=== PATIENT | female | born 1940 | race Caucasian/White ===

== ENCOUNTER 2017-03-14 14:40 | Emergency (ER) | payer MEDICARE ==
[2015-08-19 14:55] VITALS: BMI 22.6
[~2017-03-14 14:40] MED LIST: ACETAMINOPHEN325 MG PO; ACETAMINOPHEN500 M1 PO; ALDACTONE25 MG PO; ASPIRIN81 MG PO; BAYER CHEWABLE81 MG PO; CARDIZEM CD180 MG PO; CATAPRES TTS-20.2 MG TRANSDERM; CATAPRES0.1 MG PO; CRESTOR10 MG PO; GENTAMICIN 0.3 %5 ML EACH EYE; HEMOCYTE PLUS C1 CAP PO; HYDRALAZINE HC100 MG PO; HYDROCHLOROTHIA25 MG GT; LASIX20 MG PO; LEVAQUIN250 MG PO; LISINOPRIL10 MG PO; LOPRESSOR25 MG PO; NORVASC5 MG PO; PHOSLO667 MG PO; PLAVIX75 MG PO; PRINIVIL20 MG PO; TOPROL XL50 MG PO; ZESTRIL20 MG PO
== END 2017-03-14 18:10 | disposition home or self-care (01) ==
LOC: D.ER 14:40
DX: I10 Essential (primary) hypertension (principal); Z91.14 Patient's other noncompliance with medication regimen

== ENCOUNTER 2017-03-16 04:19 | Inpatient (IN) | payer MEDICARE ==
[~2017-03-16] VITALS: Ht 160 cm; Wt 62.7 kg
[2017-03-16 04:49] LABS: BASOPHILS 0.2 % (0-2); EOSINOPHILS 2.7 % (0-7); HEMATOCRIT 27.5 % (36.0-48.0); IMMATURE GRANULOCYTES 0.2 % (0-5); LYMPHOCYTES 17.4 % (15-50); MCH 30.6 pg (26.0-34.0); MCHC 32.7 g/dL (31.0-37.0); MCV 93.5 fL (80.0-100.0); MEAN PLATELET VOLUME 11.3 fL (7.4-10.4); MONOCYTES 4.3 % (2-11); NEUTROPHILS 75.2 % (40-80); PLATELET COUNT 260 10x3/uL (130-400); RBC 2.94 10x6/uL (4.00-5.40); RDW 12.5 % (11.5-14.5); WBC 12.4 10x3/uL (4.8-10.8)
[2017-03-16 05:03] LABS: ALBUMIN 2.9 g/dL (3.4-5.0); ANION GAP 17.9 mmol/L (8-16); BILIRUBIN - TOTAL 0.16 mg/dL (0.2-1.3); CALCIUM 7.9 mg/dL (8.5-10.1); CARBON DIOXIDE 20.2 mmol/L (21.0-32.0); CREATININE - SERUM 4.1 mg/dL (0.6-1.3); POTASSIUM - SERUM 4.1 mmol/L (3.5-5.1); PROTEIN - SERUM 6.8 g/dL (6.4-8.2)
[2017-03-16 05:10] LABS: TROPONIN-I 0.045 ng/mL (0.000-0.060)
[2017-03-16 10:21] VITALS: BP 166/56; BMI 22.5
[2017-03-16 11:47] VITALS: BP 173/67
[2017-03-16] MEDS ORDERED: FUROSEMIDE20 MG PO (13:21)
[2017-03-16] MEDS ORDERED: NIFEDIPINE ER60 MG PO (13:26)
[2017-03-16] MEDS ORDERED: ZOFRAN4 MG PO (13:34)
[2017-03-16 16:50] VITALS: BP 167/72
[2017-03-16 20:00] VITALS: BP 163/64
[2017-03-17] VITALS: BP 118/66
[2017-03-17 01:31] LABS: APPEARANCE CLEAR (CLEAR); BACTERIA NONE SEEN /hpf (NONE SEEN); BILIRUBIN NEGATIVE (NEGATIVE); COLOR YELLOW (YELLOW); EPITHELIAL CELLS RARE /hpf (0-5); GLUCOSE 50 mg/dL (NEGATIVE); KETONE NEGATIVE (NEGATIVE); NITRITE NEGATIVE (NEGATIVE); PROTEIN 1+ mg/dL (NEGATIVE); RED CELLS - URINE 0-5 /hpf (0-5); UROBILINOGEN NORMAL (NORMAL); WHITE CELLS - URINE RARE /hpf (0-5)
[2017-03-17 04:00] VITALS: BP 164/66
[2017-03-17 05:01] LABS: BASOPHILS 0.1 % (0-2); EOSINOPHILS 0.2 % (0-7); HEMATOCRIT 22.9 % (36.0-48.0); HEMOGLOBIN 7.6 g/dL (12-16); IMMATURE GRANULOCYTES 0.3 % (0-5); LYMPHOCYTES 9.8 % (15-50); MCH 30.5 pg (26.0-34.0); MCHC 33.2 g/dL (31.0-37.0); MEAN PLATELET VOLUME 11.4 fL (7.4-10.4); MONOCYTES 3.2 % (2-11); NEUTROPHILS 86.4 % (40-80); PLATELET COUNT 234 10x3/uL (130-400); RBC 2.49 10x6/uL (4.00-5.40); RDW 12.5 % (11.5-14.5); WBC 10.3 10x3/uL (4.8-10.8)
[2017-03-17 05:24] LABS: ANION GAP 16.8 mmol/L (8-16); CALCIUM 7.6 mg/dL (8.5-10.1); CREATININE - SERUM 3.9 mg/dL (0.6-1.3); PHOSPHOROUS 4.3 mg/dL (2.5-4.9); POTASSIUM - SERUM 3.8 mmol/L (3.5-5.1)
[2017-03-17 07:54] VITALS: BP 171/63
[2017-03-17 08:16] VITALS: Ht 160 cm; Wt 62.7 kg
[2017-03-17 12:46] VITALS: BP 146/65
[2017-03-17 16:11] VITALS: BP 139/49
[2017-03-17 20:58] VITALS: BP 153/60
[2017-03-18 00:02] VITALS: BP 159/58
[2017-03-18 05:12] LABS: BASOPHILS 0.1 % (0-2); EOSINOPHILS 0.2 % (0-7); HEMATOCRIT 21.5 % (36.0-48.0); IMMATURE GRANULOCYTES 0.3 % (0-5); LYMPHOCYTES 12.1 % (15-50); MCH 30.5 pg (26.0-34.0); MCV 92.3 fL (80.0-100.0); MEAN PLATELET VOLUME 12.2 fL (7.4-10.4); MONOCYTES 6.2 % (2-11); NEUTROPHILS 81.1 % (40-80); PLATELET COUNT 195 10x3/uL (130-400); RBC 2.33 10x6/uL (4.00-5.40); RDW 12.4 % (11.5-14.5)
[2017-03-18 05:24] LABS: HEMOGLOBIN 7.1 g/dL (12-16)
[2017-03-18 05:36] LABS: ANION GAP 13.3 mmol/L (8-16); CALCIUM 7.5 mg/dL (8.5-10.1); CARBON DIOXIDE 23.1 mmol/L (21.0-32.0); CREATININE - SERUM 3.9 mg/dL (0.6-1.3); PHOSPHOROUS 4.1 mg/dL (2.5-4.9); POTASSIUM - SERUM 3.4 mmol/L (3.5-5.1)
[2017-03-18 05:54] VITALS: BP 91/59
[2017-03-18 08:49] VITALS: BP 170/68
[2017-03-18 10:24] LABS: % SATURATION 9 % (15-55); IRON 17 ug/dl (35-150); TOTAL IRON BIND CAPACITY 185 ug/dl (260-445); UNSAT IRON BIND CAPACITY 168 ug/dl (150-375)
[2017-03-18 12:34] VITALS: BP 149/58
[2017-03-18 16:46] VITALS: BP 130/55
[2017-03-18 20:00] VITALS: BP 145/54
[2017-03-19 05:12] LABS: BASOPHILS 0.1 % (0-2); EOSINOPHILS 0.6 % (0-7); HEMATOCRIT 28.6 % (36.0-48.0); HEMOGLOBIN 9.7 g/dL (12-16); IMMATURE GRANULOCYTES 0.4 % (0-5); LYMPHOCYTES 7.8 % (15-50); MCH 30.5 pg (26.0-34.0); MCHC 33.9 g/dL (31.0-37.0); MCV 89.9 fL (80.0-100.0); MEAN PLATELET VOLUME 12.2 fL (7.4-10.4); MONOCYTES 4.5 % (2-11); NEUTROPHILS 86.6 % (40-80); PLATELET COUNT 191 10x3/uL (130-400); RBC 3.18 10x6/uL (4.00-5.40); RDW 13.4 % (11.5-14.5)
[2017-03-19 05:26] LABS: ANION GAP 15.1 mmol/L (8-16); CALCIUM 7.7 mg/dL (8.5-10.1); CARBON DIOXIDE 22.5 mmol/L (21.0-32.0); MAGNESIUM - SERUM 1.8 mg/dL (1.8-2.4); PHOSPHOROUS 3.9 mg/dL (2.5-4.9); POTASSIUM - SERUM 3.6 mmol/L (3.5-5.1)
[2017-03-19 05:52] VITALS: BP 172/71
[2017-03-19 08:08] VITALS: BP 175/61
[2017-03-19 08:45] LABS: COMPLEMENT C4 30.5 mg/dL (17.4-52.2)
[2017-03-19 09:38] LABS: ERYTHROCYTE SEDIMENTATION RATE 105 mm/hr (0-30)
[2017-03-19 12:36] VITALS: BP 156/65
[2017-03-19 17:00] VITALS: BP 149/60
[2017-03-19 21:09] VITALS: BP 154/44
[2017-03-20 01:13] VITALS: BP 154/66
[2017-03-20 05:33] LABS: BASOPHILS 0.1 % (0-2); EOSINOPHILS 3.4 % (0-7); HEMATOCRIT 29.5 % (36.0-48.0); HEMOGLOBIN 9.9 g/dL (12-16); IMMATURE GRANULOCYTES 0.2 % (0-5); LYMPHOCYTES 9.6 % (15-50); MCH 30.4 pg (26.0-34.0); MCHC 33.6 g/dL (31.0-37.0); MCV 90.5 fL (80.0-100.0); MEAN PLATELET VOLUME 12.3 fL (7.4-10.4); MONOCYTES 3.4 % (2-11); NEUTROPHILS 83.3 % (40-80); PLATELET COUNT 213 10x3/uL (130-400); RBC 3.26 10x6/uL (4.00-5.40); RDW 13.2 % (11.5-14.5)
[2017-03-20 05:50] LABS: WBC 8.2 10x3/uL (4.8-10.8)
[2017-03-20 05:55] LABS: ANION GAP 15.1 mmol/L (8-16); CALCIUM 7.8 mg/dL (8.5-10.1); CARBON DIOXIDE 23.4 mmol/L (21.0-32.0); PHOSPHOROUS 3.8 mg/dL (2.5-4.9); POTASSIUM - SERUM 3.5 mmol/L (3.5-5.1)
[2017-03-20 06:12] LABS: FOLATE (FOLIC ACID) - SERUM 7.2 ng/mL (>3.0)
[2017-03-20 08:00] VITALS: BP 153/58
[2017-03-20 09:11] LABS: ANA REFLEX - DIRECT Negative (Negative)
[2017-03-20 11:13] LABS: SPE - A/G RATIO 0.8 (0.7-1.7); SPE - ALBUMIN 2.2 g/dL (2.9-4.4); SPE - ALPHA-1 GLOBULIN 0.4 g/dL (0.0-0.4); SPE - ALPHA-2 GLOBULIN 0.9 g/dL (0.4-1.0); SPE - BETA GLOBULIN 0.9 g/dL (0.7-1.3); SPE - GAMMA GLOBULIN 0.6 g/dL (0.4-1.8); SPE - M-SPIKE Not Observed g/dL (Not Observed)
[2017-03-20 12:00] VITALS: BP 157/60
[2017-03-20 16:00] VITALS: BP 160/68
[2017-03-21 03:54] VITALS: BP 170/70
[2017-03-21 06:17] LABS: BASOPHILS 0.1 % (0-2); HEMATOCRIT 31.2 % (36.0-48.0); HEMOGLOBIN 10.3 g/dL (12-16); IMMATURE GRANULOCYTES 0.3 % (0-5); MCH 30.1 pg (26.0-34.0); MCV 91.2 fL (80.0-100.0); MONOCYTES 5.3 % (2-11); NEUTROPHILS 79.3 % (40-80); RBC 3.42 10x6/uL (4.00-5.40); WBC 7.4 10x3/uL (4.8-10.8)
[2017-03-21 06:18] LABS: PLATELET COUNT 264 10x3/uL (130-400)
[2017-03-21 06:45] LABS: ANION GAP 14.8 mmol/L (8-16); CALCIUM 7.7 mg/dL (8.5-10.1); CARBON DIOXIDE 23.9 mmol/L (21.0-32.0); CREATININE - SERUM 3.7 mg/dL (0.6-1.3); PHOSPHOROUS 3.8 mg/dL (2.5-4.9); POTASSIUM - SERUM 3.7 mmol/L (3.5-5.1)
[2017-03-21 08:15] LABS: ANTI-GLOMERULAR BASMENT MEMBRN 4 units (0-20)
[2017-03-21 08:30] VITALS: BP 190/72
[2017-03-21 12:06] VITALS: BP 174/78
[2017-03-21 14:15] LABS: ANCA - ANTIMYELOPEROXIDASE <9.0 U/mL (0.0-9.0); ANCA - ANTIPROTEINASE 3 <3.5 U/mL (0.0-3.5); ANCA - ATYPICAL <1:20 titer (Neg:<1:20); ANCA - CYTOPLASMIC <1:20 titer (Neg:<1:20); ANCA - PERINUCLEAR <1:20 titer (Neg:<1:20)
[2017-03-21 16:06] VITALS: BP 154/64
[2017-03-21 21:25] VITALS: BP 170/73
[2017-03-22 00:36] VITALS: BP 166/65
[2017-03-22 04:45] VITALS: BP 140/64
[2017-03-22 07:21] LABS: UPE RAND - ALBUMIN 58.8 % (()); UPE RAND - ALPHA 1 GLOBULIN 5.4 % (()); UPE RAND - ALPHA 2 GLOBULIN 11.7 % (()); UPE RAND - GAMMA GLOBULIN 12.1 % (())
[2017-03-22 08:05] VITALS: BP 189/78
[2017-03-22] MEDS ORDERED: PROCARDIA XL PO (10:58)
[2017-03-22] MEDS ORDERED: POTASSIUM CHLORIDE PO (10:59)
[2017-03-22 12:10] VITALS: BP 195/125
[2017-03-22] MEDS ORDERED: CATAPRES0.1 MG PO (13:07)
[2017-03-22 15:01] VITALS: BP 153/110
== END 2017-03-22 15:59 | disposition home or self-care (01) | DRG 682 ==
LOC: D.ER 04:19 → D.M2 06:00
PROVIDERS: Family Medicine; Internal Medicine Nephrology; Legal Medicine
DX: N17.9 Acute kidney failure, unspecified (principal); J18.9 Pneumonia, unspecified organism; I11.0 Hypertensive heart disease with heart failure; I50.9 Heart failure, unspecified; D50.9 Iron deficiency anemia, unspecified; I25.10 Atherosclerotic heart disease of native coronary artery without angina pectoris; E78.5 Hyperlipidemia, unspecified; E11.9 Type 2 diabetes mellitus without complications; I08.1 Rheumatic disorders of both mitral and tricuspid valves

== ENCOUNTER 2017-03-25 00:17 | Inpatient (IN) | payer MEDICARE ==
[~2017-03-25] VITALS: Ht 160 cm; Wt 55.1 kg
--- NOTE | ~2017-03-25 | EC ---
PATIENT:TODD RESENDIZ DATE OF SERVICE: 03/25/17 SEX: F MEDICAL RECORD: [id number] DATE OF : 44 LOCATION:[facility] AGE OF PATIENT: 76 ADMISSION DATE: 03/25/17 REFERRING PHYSICIAN: INTERPRETING PHYSICIAN: JUAN FRANCISCO GARZA MD ECHOCARDIOGRAM REPORT ECHO CHARGES 4 ECHO COMPLETE CLINICAL DIAGNOSIS: CARDIOMYOPATHY ECHOCARDIOGRAPHIC MEASUREMENTS (adult normal given) AC root (d.<3.7cm) 3.5 cm LV Septum d (<1.2 cm> 1.1 cm Valve Excursion 1.5 cm LV Septum (systole) 1.2 cm Left Atria (s.<4.0cm> 3.8 cm LVPW d(<1.2cm) 1.4 cm RV (d.<2.3cm) 4.4 cm LVPW (sytole) 1.5 cm LV diastole(<5.6CM) 6.3 cm MV E-F(>70mm/sec) cm LV systole 5.2 cm LVOT Diameter 1.5 cm MV exc.(>10mm) 1.3 cm Est.ejection fraction (50-75%) % Pericardial Effusion N DOPPLER: LVIT cm/sec A 117 cm/sec E 111 cm/sec LA cm/sec RVSP 31 mmHg LVOT 143 cm/sec AOP1/2T m/s Asc. Ao 190 cm/sec RVOT 109 cm/sec RA cm/sec PA 163 cm/sec AV Gradient Peak 14.39mmHg AV Mean 7.07 mmHg AV Area 1.3 cm MV Gradient Peak 6.99 mmHg MV Mean 2.34 mmHg MV Area cm COMMENTS: Car Pre Cooler: 2 ANDREINA HERRING Fermenter Wine: 4 Dr. Garza TAPE# PACS DATE OF SERVICE: 03/28/2017 PROCEDURE: Transthoracic echocardiogram. FINDINGS: 1. Left ventricle has mild left ventricular hypertrophy. There is mild anterior and septal hypokinesis and flow characteristics consistent with diastolic dysfunction. The overall ejection fraction of 45% to 50%. 2. The left atrium is normal size, normal function. 3. Aortic valve is not well visualized, but appears to be grossly normal with ECHOCARDIOGRAM REPORT [id number] TODD RESENDIZ possibly mild sclerosis. 4. Mitral valve has mild mitral regurgitation. 5. The right atrium upper limits of normal to mildly dilated. 6. The right ventricle is not well visualized, but appears to have normal function and appears to have moderate dilatation. 7. The right ventricular systolic pressures are normal. 8. The interatrial septum is grossly intact with no evidence of an ASD or PFO by color flow. There is no obvious thrombus, masses, exudate or effusion. CONCLUSIONS: The patient has evidence of hypertensive heart disease. There is evidence of regional wall motion abnormalities consistent with old infarction. The EF is mildly reduced. TRANSINT:[id number] Voice Confirmation ID: [id number] DOCUMENT ID: [id number] 04/08/2017 Edited to correct date of service, dmm. JUAN FRANCISCO GARZA MD at 1038 CC: [id number] DICTATION DATE: 04/02/17 0843 RESEARCH PROFESSOR OF BIOSTATISTICS: 04/02/17 1039 DIS IN 04/02/17 [facility] [address] [place] [address]
[~2017-03-25 00:17] MED LIST changes: +FUROSEMIDE20 MG PO; +NIFEDIPINE ER60 MG PO; +POTASSIUM CHLORIDE PO; +PROCARDIA XL PO; +ZOFRAN4 MG PO
[2017-03-25 00:52] LABS: BASOPHILS 0.2 % (0-2); EOSINOPHILS 4.1 % (0-7); HEMATOCRIT 29.7 % (36.0-48.0); HEMOGLOBIN 9.6 g/dL (12-16); IMMATURE GRANULOCYTES 0.5 % (0-5); LYMPHOCYTES 14.7 % (15-50); MCH 30.2 pg (26.0-34.0); MCHC 32.3 g/dL (31.0-37.0); MCV 93.4 fL (80.0-100.0); MEAN PLATELET VOLUME 11.6 fL (7.4-10.4); MONOCYTES 6.3 % (2-11); NEUTROPHILS 74.2 % (40-80); PLATELET COUNT 374 10x3/uL (130-400); RBC 3.18 10x6/uL (4.00-5.40); RDW 12.7 % (11.5-14.5); WBC 10.9 10x3/uL (4.8-10.8)
[2017-03-25 01:00] LABS: ALBUMIN 2.5 g/dL (3.4-5.0); ANION GAP 16.7 mmol/L (8-16); BILIRUBIN - TOTAL 0.17 mg/dL (0.2-1.3); CALCIUM 7.6 mg/dL (8.5-10.1); CARBON DIOXIDE 23.6 mmol/L (21.0-32.0); POTASSIUM - SERUM 4.3 mmol/L (3.5-5.1); PROTEIN - SERUM 7.1 g/dL (6.4-8.2)
[2017-03-25 01:19] LABS: TROPONIN-I 0.113 ng/mL (0.000-0.060)
[2017-03-25 04:00] VITALS: BP 158/63
[2017-03-25 04:53] VITALS: BP 158/63; BMI 23.9
[2017-03-25 06:54] LABS: CREATINE KINASE 64 UL (21-215); TROPONIN-I 0.134 ng/mL (0.000-0.060)
[2017-03-25 08:51] VITALS: BP 140/62
[2017-03-25 12:20] VITALS: BP 145/57
[2017-03-25 12:52] LABS: CKMB 1.1 U/L (0.0-3.6); CREATINE KINASE 61 UL (21-215)
[2017-03-25 12:54] LABS: TROPONIN-I 0.128 ng/mL (0.000-0.060)
[2017-03-25 16:03] VITALS: BP 126/67
[2017-03-25 20:00] VITALS: BP 127/54
[2017-03-26] VITALS (15 sets, daily range): BP systolic 125–156; BP diastolic 48–67; BMI 23.9
[2017-03-26 06:10] LABS: BASOPHILS 0.4 % (0-2); EOSINOPHILS 5.2 % (0-7); IMMATURE GRANULOCYTES 0.3 % (0-5); LYMPHOCYTES 16.5 % (15-50); MCH 30.1 pg (26.0-34.0); MCHC 32.3 g/dL (31.0-37.0); MCV 93.3 fL (80.0-100.0); MEAN PLATELET VOLUME 11.6 fL (7.4-10.4); NEUTROPHILS 68.6 % (40-80); PLATELET COUNT 314 10x3/uL (130-400); RDW 12.7 % (11.5-14.5)
[2017-03-26 06:18] LABS: HEMATOCRIT 22.3 % (36.0-48.0); RBC 2.39 10x6/uL (4.00-5.40)
[2017-03-26 06:19] LABS: HEMOGLOBIN 7.2 g/dL (12-16)
[2017-03-26 06:33] LABS: ANION GAP 15.6 mmol/L (8-16); CALCIUM 7.3 mg/dL (8.5-10.1); CARBON DIOXIDE 25.4 mmol/L (21.0-32.0); CREATININE - SERUM 4.5 mg/dL (0.6-1.3)
[2017-03-26 20:43] LABS: AMORPHOUS SEDIMENT >1+ /lpf (NONE SEEN); APPEARANCE HAZY (CLEAR); BACTERIA MODERATE /hpf (NONE SEEN); BILIRUBIN NEGATIVE (NEGATIVE); COLOR STRAW (YELLOW); EPITHELIAL CELLS 0-5 /hpf (0-5); GLUCOSE 50 mg/dL (NEGATIVE); KETONE NEGATIVE (NEGATIVE); NITRITE NEGATIVE (NEGATIVE); PROTEIN 3+ mg/dL (NEGATIVE); RED CELLS - URINE 0-5 /hpf (0-5); SPECIFIC GRAVITY 1.015 (1.005-1.020); UROBILINOGEN NORMAL (NORMAL); WHITE CELLS - URINE 0-5 /hpf (0-5)
[2017-03-26 20:46] LABS: CREATININE - URINE 34.8 mg/dL (30-125); POTASSIUM - URINE 37.6 MMOL/L (12.0-62.0)
[2017-03-26 20:57] LABS: PRO/CRE RATIO URINE 8.2 mg/g; PROTEIN - URINE 284.5 mg/dL (0.0-11.9)
[2017-03-27] VITALS: BP 142/59
[2017-03-27 05:53] VITALS: BP 186/83
[2017-03-27 06:09] LABS: BASOPHILS 0.1 % (0-2); EOSINOPHILS 4.1 % (0-7); IMMATURE GRANULOCYTES 0.1 % (0-5); LYMPHOCYTES 14.1 % (15-50); MCH 30.2 pg (26.0-34.0); MCV 91.4 fL (80.0-100.0); MEAN PLATELET VOLUME 11.9 fL (7.4-10.4); MONOCYTES 7.5 % (2-11); NEUTROPHILS 74.1 % (40-80); PLATELET COUNT 324 10x3/uL (130-400); RDW 13.5 % (11.5-14.5); WBC 8.3 10x3/uL (4.8-10.8)
[2017-03-27 06:11] LABS: HEMATOCRIT 29.7 % (36.0-48.0); HEMOGLOBIN 9.8 g/dL (12-16); RBC 3.25 10x6/uL (4.00-5.40)
[2017-03-27 06:35] LABS: ALBUMIN 2.4 g/dL (3.4-5.0); ANION GAP 18.4 mmol/L (8-16); BILIRUBIN - TOTAL 0.58 mg/dL (0.2-1.3); CALCIUM 7.5 mg/dL (8.5-10.1); CARBON DIOXIDE 23.3 mmol/L (21.0-32.0); CREATININE - SERUM 4.6 mg/dL (0.6-1.3); POTASSIUM - SERUM 3.7 mmol/L (3.5-5.1); PROTEIN - SERUM 6.8 g/dL (6.4-8.2)
[2017-03-27 08:07] VITALS: BP 161/72
[2017-03-27 12:43] VITALS: BP 156/66
[2017-03-27 16:08] VITALS: BP 160/67
[2017-03-27 20:00] VITALS: BP 178/66
[2017-03-28] VITALS: BP 167/68
[2017-03-28 04:00] VITALS: BP 120/50
[2017-03-28 05:49] LABS: BASOPHILS 0.3 % (0-2); EOSINOPHILS 4.3 % (0-7); HEMATOCRIT 28.3 % (36.0-48.0); HEMOGLOBIN 9.5 g/dL (12-16); IMMATURE GRANULOCYTES 0.3 % (0-5); LYMPHOCYTES 12.6 % (15-50); MCH 30.1 pg (26.0-34.0); MCHC 33.6 g/dL (31.0-37.0); MCV 89.6 fL (80.0-100.0); MEAN PLATELET VOLUME 11.5 fL (7.4-10.4); MONOCYTES 8.4 % (2-11); NEUTROPHILS 74.1 % (40-80); PLATELET COUNT 342 10x3/uL (130-400); RBC 3.16 10x6/uL (4.00-5.40); WBC 7.1 10x3/uL (4.8-10.8)
[2017-03-28 06:12] LABS: ALBUMIN 1.9 g/dL (3.4-5.0); ANION GAP 17.1 mmol/L (8-16); BILIRUBIN - TOTAL 0.5 mg/dL (0.2-1.3); CALCIUM 7.6 mg/dL (8.5-10.1); CARBON DIOXIDE 23.6 mmol/L (21.0-32.0); CREATININE - SERUM 4.8 mg/dL (0.6-1.3); POTASSIUM - SERUM 3.7 mmol/L (3.5-5.1)
[2017-03-28 08:35] VITALS: BP 172/60
[2017-03-28 13:48] VITALS: BP 170/58
[2017-03-28 16:04] VITALS: BP 103/49
[2017-03-28 20:00] VITALS: BP 164/62
[2017-03-29 04:00] VITALS: BP 137/92
[2017-03-29 05:56] LABS: BASOPHILS 0.2 % (0-2); EOSINOPHILS 4.4 % (0-7); HEMATOCRIT 29.2 % (36.0-48.0); HEMOGLOBIN 9.8 g/dL (12-16); IMMATURE GRANULOCYTES 0.2 % (0-5); LYMPHOCYTES 12.1 % (15-50); MCH 29.8 pg (26.0-34.0); MCHC 33.6 g/dL (31.0-37.0); MCV 88.8 fL (80.0-100.0); MONOCYTES 7.8 % (2-11); NEUTROPHILS 75.3 % (40-80); PLATELET COUNT 365 10x3/uL (130-400); RBC 3.29 10x6/uL (4.00-5.40); RDW 12.8 % (11.5-14.5); WBC 8.2 10x3/uL (4.8-10.8)
[2017-03-29 06:23] LABS: ALBUMIN 1.9 g/dL (3.4-5.0); ANION GAP 17.3 mmol/L (8-16); BILIRUBIN - TOTAL 0.49 mg/dL (0.2-1.3); CALCIUM 7.6 mg/dL (8.5-10.1); CARBON DIOXIDE 24.1 mmol/L (21.0-32.0); CREATININE - SERUM 4.8 mg/dL (0.6-1.3); POTASSIUM - SERUM 3.4 mmol/L (3.5-5.1); PROTEIN - SERUM 6.2 g/dL (6.4-8.2)
[2017-03-29 08:17] VITALS: BP 107/77
[2017-03-29 08:32] VITALS: Ht 160 cm; Wt 55.1 kg
[2017-03-29 12:45] VITALS: BP 149/51
[2017-03-29 16:51] VITALS: BP 150/58
[2017-03-29 20:00] VITALS: BP 141/66
[2017-03-30 04:00] VITALS: BP 155/66
[2017-03-30 06:42] LABS: BASOPHILS 0.2 % (0-2); EOSINOPHILS 3.6 % (0-7); HEMATOCRIT 29.7 % (36.0-48.0); IMMATURE GRANULOCYTES 0.2 % (0-5); LYMPHOCYTES 13.6 % (15-50); MCHC 33.7 g/dL (31.0-37.0); MCV 89.2 fL (80.0-100.0); MEAN PLATELET VOLUME 11.5 fL (7.4-10.4); MONOCYTES 8.8 % (2-11); NEUTROPHILS 73.6 % (40-80); PLATELET COUNT 359 10x3/uL (130-400); RBC 3.33 10x6/uL (4.00-5.40); RDW 12.6 % (11.5-14.5); WBC 8.1 10x3/uL (4.8-10.8)
[2017-03-30 07:09] LABS: ANION GAP 18.1 mmol/L (8-16); BILIRUBIN - TOTAL 0.35 mg/dL (0.2-1.3); CALCIUM 7.9 mg/dL (8.5-10.1); CARBON DIOXIDE 25.7 mmol/L (21.0-32.0); POTASSIUM - SERUM 3.8 mmol/L (3.5-5.1); PROTEIN - SERUM 5.6 g/dL (6.4-8.2)
[2017-03-30 08:16] VITALS: BP 167/61
[2017-03-30 12:11] VITALS: BP 161/66
[2017-03-30 15:26] VITALS: BP 150/56
[2017-03-30 20:00] VITALS: BP 160/56
[2017-03-31] VITALS: BP 180/64
[2017-03-31 04:00] VITALS: BP 159/59
[2017-03-31 04:51] LABS: BASOPHILS 0.3 % (0-2); HEMATOCRIT 31.1 % (36.0-48.0); HEMOGLOBIN 10.4 g/dL (12-16); IMMATURE GRANULOCYTES 0.1 % (0-5); LYMPHOCYTES 13.5 % (15-50); MCHC 33.4 g/dL (31.0-37.0); MCV 89.6 fL (80.0-100.0); MEAN PLATELET VOLUME 11.8 fL (7.4-10.4); MONOCYTES 9.5 % (2-11); NEUTROPHILS 72.6 % (40-80); PLATELET COUNT 376 10x3/uL (130-400); RBC 3.47 10x6/uL (4.00-5.40); RDW 12.8 % (11.5-14.5); WBC 7.9 10x3/uL (4.8-10.8)
[2017-03-31 05:13] LABS: ALBUMIN 1.8 g/dL (3.4-5.0); ANION GAP 16.7 mmol/L (8-16); BILIRUBIN - TOTAL 0.33 mg/dL (0.2-1.3); CALCIUM 7.7 mg/dL (8.5-10.1); CARBON DIOXIDE 24.6 mmol/L (21.0-32.0); CREATININE - SERUM 4.7 mg/dL (0.6-1.3); POTASSIUM - SERUM 3.3 mmol/L (3.5-5.1); PROTEIN - SERUM 6.1 g/dL (6.4-8.2)
[2017-03-31 08:15] VITALS: BP 200/77
[2017-03-31 12:43] VITALS: BP 152/58
[2017-03-31 16:02] VITALS: BP 156/58
[2017-03-31 20:00] VITALS: BP 144/53
[2017-04-01 04:00] VITALS: BP 163/60
[2017-04-01 05:35] LABS: HEMOGLOBIN A1C 5.9 % (4.8-6.0)
[2017-04-01 08:14] VITALS: BP 176/54
[2017-04-01 08:58] LABS: BASOPHILS 0.2 % (0-2); EOSINOPHILS 4.3 % (0-7); HEMATOCRIT 28.5 % (36.0-48.0); HEMOGLOBIN 9.2 g/dL (12-16); IMMATURE GRANULOCYTES 0.3 % (0-5); LYMPHOCYTES 13.8 % (15-50); MCH 29.2 pg (26.0-34.0); MCHC 32.3 g/dL (31.0-37.0); MCV 90.5 fL (80.0-100.0); MEAN PLATELET VOLUME 11.9 fL (7.4-10.4); MONOCYTES 8.3 % (2-11); NEUTROPHILS 73.1 % (40-80); PLATELET COUNT 321 10x3/uL (130-400); RBC 3.15 10x6/uL (4.00-5.40); RDW 12.8 % (11.5-14.5); WBC 9.2 10x3/uL (4.8-10.8)
[2017-04-01 09:05] LABS: ANION GAP 15.9 mmol/L (8-16); CALCIUM 7.5 mg/dL (8.5-10.1); CARBON DIOXIDE 22.9 mmol/L (21.0-32.0); CREATININE - SERUM 4.3 mg/dL (0.6-1.3)
[2017-04-01 09:12] LABS: POTASSIUM - SERUM 3.8 mmol/L (3.5-5.1)
[2017-04-01 13:11] VITALS: BP 172/56
[2017-04-01 17:27] VITALS: BP 170/64
[2017-04-01 20:00] VITALS: BP 146/55
[2017-04-02 04:00] VITALS: BP 170/58
[2017-04-02 04:38] LABS: BASOPHILS 0.3 % (0-2); EOSINOPHILS 5.6 % (0-7); HEMOGLOBIN 9.2 g/dL (12-16); IMMATURE GRANULOCYTES 0.4 % (0-5); LYMPHOCYTES 15.1 % (15-50); MCH 30.1 pg (26.0-34.0); MCHC 32.9 g/dL (31.0-37.0); MCV 91.5 fL (80.0-100.0); MEAN PLATELET VOLUME 11.5 fL (7.4-10.4); MONOCYTES 8.5 % (2-11); NEUTROPHILS 70.1 % (40-80); PLATELET COUNT 307 10x3/uL (130-400); RBC 3.06 10x6/uL (4.00-5.40); RDW 12.6 % (11.5-14.5); WBC 7.6 10x3/uL (4.8-10.8)
[2017-04-02 04:58] LABS: ANION GAP 12.8 mmol/L (8-16); CALCIUM 7.7 mg/dL (8.5-10.1); CARBON DIOXIDE 23.7 mmol/L (21.0-32.0); CREATININE - SERUM 4.2 mg/dL (0.6-1.3); POTASSIUM - SERUM 3.5 mmol/L (3.5-5.1)
[2017-04-02 09:30] VITALS: BP 183/63
[2017-04-02 12:01] VITALS: BP 142/54
[2017-04-02] MEDS ORDERED: LEVOFLOXAC500 MG/100 IV (14:48)
[2017-04-02] MEDS ORDERED: MAXIPIME 2 GM/D52 G1 IV (14:50)
[2017-04-02 16:31] VITALS: BP 154/55
== END 2017-04-02 18:36 | DRG 177 ==
LOC: D.ER 00:17 → D.MS 01:45
PROVIDERS: Emergency Medicine; Internal Medicine; Internal Medicine Nephrology; Internal Medicine Pulmonary Disease; Legal Medicine
DX: J15.6 Pneumonia due to other Gram-negative bacteria (principal); I50.33 Acute on chronic diastolic (congestive) heart failure; I13.0 Hypertensive heart and chronic kidney disease with heart failure and stage 1 through stage 4 chronic kidney disease, or unspecified chronic kidney disease; N17.9 Acute kidney failure, unspecified; N39.0 Urinary tract infection, site not specified; J15.212 Pneumonia due to Methicillin resistant Staphylococcus aureus; N18.9 Chronic kidney disease, unspecified; I25.10 Atherosclerotic heart disease of native coronary artery without angina pectoris; J44.9 Chronic obstructive pulmonary disease, unspecified; E11.22 Type 2 diabetes mellitus with diabetic chronic kidney disease; R80.9 Proteinuria, unspecified; D64.9 Anemia, unspecified; B96.20 Unspecified Escherichia coli [E. coli] as the cause of diseases classified elsewhere; I27.20 Pulmonary hypertension, unspecified; I08.1 Rheumatic disorders of both mitral and tricuspid valves; E11.40 Type 2 diabetes mellitus with diabetic neuropathy, unspecified

== ENCOUNTER 2017-04-02 17:07 | Inpatient (IN) | payer MEDICARE ==
[~2017-04-02] VITALS: Ht 160 cm; Wt 69.0 kg
--- NOTE | ~2017-04-02 | RHP ---
PATIENT: TODD RESENDIZ MEDICAL RECORD: [id number] ACCOUNT: [id number] LOCATION:[facility] Lo1111 : 44 ADMISSION DATE: 04/02/17 REHABILITATION HISTORY AND PHYSICAL EXAMINATION POST ADMISSION PHYSICIAN EXAMINATION POST-ADMISSION PHYSICAL EXAMINATION AND HISTORY AND PHYSICAL DATE OF ADMISSION: 04/02/2017 ADMITTING DIAGNOSIS: Disuse myopathy HISTORY OF PRESENT ILLNESS: The patient admitted to the inpatient rehab for neurological condition. She is a 76-year-old female patient that presented to the hospital on 03/16 due to worsening shortness of breath. CT revealed multiple areas of airspace disease suggesting pneumonia. She completed 5 days of IV azithromycin. She was kept in the hospital for creatinine elevation and anemia, received 2 units of packed red blood cells on 03/18, was discharged on 03/22, continued antibiotics for UTI and E. coli. She presented back to the Emergency Room on 03/25 with increasing shortness of breath. Chest x-ray showed increasing opacities predominantly on the right lung suggesting multifocal or atypical pneumonia on background chronic changes of COPD. She has a history of CVA times 2, diabetes with neuropathy, nephropathy, diastolic congestive heart failure, got a history of anemia, hypertension, hyperlipidemia, coronary artery disease, blindness, gallstones, recurrent pneumonia, and ischemic cardiomyopathy. She has got proximal muscle weakness, was noted to be in bed most of the hospitalization, had just began working with physical therapy on 04/01. She is living at home with her son and states she was moderately independent with her mobility. She is blind in her left eye and has minimal sight in the right eye, seeing figures and shadows only. States all this happened after she had stents placed in her heart. She was moderately independent with ADL. States her son and daughter assist her as needed. States she is just very weak with her extended illness with pneumonia. She is currently setup for total assist with her ADLs and max assist to total assist with mobility. She plans to return home at her prior level of functioning or better. Comorbidities in this patient include pneumonia, anemia, bilateral pleural effusions, chronic renal failure, coronary artery disease, CHF, hypertension, hyperlipidemia, acute kidney injury, hospital-acquired pneumonia, poyqj-om-gimlfor diastolic congestive heart failure, pulmonary hypertension, history of CVA, anemia, hyperlipidemia, gallstones, hypokalemia, and hypoalbuminemia. PAST MEDICAL HISTORY: Significant for vertigo, CVA times 2, cataracts, blind in her left eye, diabetes, hypertension, CHF, and NV times 2. PAST SURGICAL HISTORY: Includes angioplasty with stent placement and cataract surgery. ALLERGIES: No known drug allergies. CURRENT MEDICATIONS: Include potassium 20 mEq daily, Levaquin 500 mg every 48 hours, Zofran 4 mg daily. She is on furosemide 20 mg daily, Plavix 75 mg daily, Maxipime 2 grams IV daily. She is on aspirin chewable 81 mg daily, metoprolol 50 mg b.i.d., clonidine 0.1 mg every 6 hours p.r.n., and polyethylene glycol 17 g in 8 ounces of water daily. HISTORY AND PHYSICAL [id number] TODD RESENDIZ HABITS: No current alcohol or tobacco use. FAMILY HISTORY: Noncontributory. SOCIAL HISTORY: As above. The patient hopes to return back home and get back to her prior level of functioning. REVIEW OF SYSTEMS: GENERAL: Does complain of weakness. HEENT: Denies cold, cough, or congestion. CARDIOVASCULAR: Denies any chest pain. PHYSICAL EXAMINATION: VITAL SIGNS: Stable, afebrile. GENERAL: Elderly female, in no acute distress upon exam. HEENT: Normocephalic and atraumatic. Mucosa moist. NECK: Supple. No lymphadenopathy. LUNGS: Coarse breath sounds bilaterally. CARDIOVASCULAR: Regular rate and rhythm. ABDOMEN: Benign. EXTREMITIES: No clubbing, cyanosis, or edema. NEUROLOGIC: Slow to mentate, but seems intact. ASSESSMENT: This is a 76-year-old female patient admitted to rehab with a working diagnosis of disuse myopathy. The patient has potential to make improvement. We will institute the following multidisciplinary therapies including, but not limited to, physical, occupational, respiratory, speech, nutritional services, prosthetics, and orthotics. Given her complex condition and risk for more complications, rehabilitation services cannot be provided at a low level of care such as a [facility] facility. PLAN: 1. Admit to [facility] rehab for intensive inpatient therapy to include the following disciplines: A. Physical therapy to improve gait, all transfer skills and bed mobility to a modified independent level. B. Occupational therapy to improve activities of daily living to a modified independent level. C. Case management to assist with discharge planning and placement options. D. Nutrition to assist with nutritional needs. E. Rehabilitation nursing to assist in monitoring the patient's underlying medical conditions and to assist with any type of bowel or bladder management. 2. The patient's current medication and medical care will be continued. 3. The patient will be placed on standard fall precautions. 4. The patient's estimated length of stay is approximately 7 to 10 days. 5. We will discuss this patient during care team staff meeting this week. TRANSINT:[id number] Voice Confirmation ID: [id number] DOCUMENT ID: [id number] SILVIA notes whether there has been none or any medical/functional change since admission: - No change since pre-admission screen. HISTORY AND PHYSICAL [id number] TODD RESENDIZ attests patient continues to be appropriate for IRF: - Continues to be appropriate for ARU. JOSE C DRAKE MD at 1317 CC: [id number] DICTATION DATE: 04/03/17 1031 SWING FRAME GRINDER OPERATOR: 04/03/17 1102 ADM IN [facility] [address] [place] [address]
[~2017-04-02 17:07] MED LIST changes: +LEVOFLOXAC500 MG/100 IV; +MAXIPIME 2 GM/D52 G1 IV
[2017-04-02 22:37] VITALS: BP 163/56
[2017-04-02 22:53] VITALS: BMI 27.0
[2017-04-03 08:14] VITALS: BP 180/55
[2017-04-03 12:46] LABS: BASOPHILS 0.2 % (0-2); HEMATOCRIT 32.6 % (36.0-48.0); HEMOGLOBIN 10.6 g/dL (12-16); IMMATURE GRANULOCYTES 0.5 % (0-5); LYMPHOCYTES 11.7 % (15-50); MCH 29.8 pg (26.0-34.0); MCHC 32.5 g/dL (31.0-37.0); MCV 91.6 fL (80.0-100.0); MEAN PLATELET VOLUME 12.1 fL (7.4-10.4); MONOCYTES 7.2 % (2-11); NEUTROPHILS 75.4 % (40-80); PLATELET COUNT 312 10x3/uL (130-400); RBC 3.56 10x6/uL (4.00-5.40); RDW 12.5 % (11.5-14.5); WBC 8.2 10x3/uL (4.8-10.8)
[2017-04-03 13:10] LABS: CALCIUM 8.1 mg/dL (8.5-10.1); CARBON DIOXIDE 19.7 mmol/L (21.0-32.0); CREATININE - SERUM 3.7 mg/dL (0.6-1.3)
[2017-04-03 13:17] LABS: POTASSIUM - SERUM 4.7 mmol/L (3.5-5.1)
[2017-04-03 23:25] VITALS: BP 180/67
[2017-04-04 08:00] VITALS: BP 187/64
[2017-04-04 08:06] LABS: HEMATOCRIT 28.3 % (36.0-48.0); HEMOGLOBIN 9.5 g/dL (12-16); LYMPHOCYTES 11.3 % (15-50); MCHC 33.6 g/dL (31.0-37.0); MEAN PLATELET VOLUME 11.2 fL (7.4-10.4); NEUTROPHILS 76.1 % (40-80); RBC 3.17 10x6/uL (4.00-5.40); RDW 12.6 % (11.5-14.5); WBC 9.1 10x3/uL (4.8-10.8)
[2017-04-04 08:08] LABS: MCV 89.3 fL (80.0-100.0); PLATELET COUNT 248 10x3/uL (130-400)
[2017-04-04 08:22] LABS: ANION GAP 17.5 mmol/L (8-16); CALCIUM 7.7 mg/dL (8.5-10.1); CARBON DIOXIDE 21.7 mmol/L (21.0-32.0); CREATININE - SERUM 3.9 mg/dL (0.6-1.3); POTASSIUM - SERUM 4.2 mmol/L (3.5-5.1)
[2017-04-04 12:57] VITALS: Ht 160 cm; Wt 69.0 kg
[2017-04-04 23:45] VITALS: BP 187/66
[2017-04-05 08:00] VITALS: BP 202/77
[2017-04-05 19:15] VITALS: BP 163/71; BP 189/72
[2017-04-06 06:45] LABS: BASOPHILS 0.3 % (0-2); EOSINOPHILS 6.6 % (0-7); HEMATOCRIT 30.6 % (36.0-48.0); IMMATURE GRANULOCYTES 0.4 % (0-5); LYMPHOCYTES 13.8 % (15-50); MCH 29.3 pg (26.0-34.0); MCHC 32.7 g/dL (31.0-37.0); MCV 89.7 fL (80.0-100.0); MEAN PLATELET VOLUME 11.5 fL (7.4-10.4); MONOCYTES 11.2 % (2-11); NEUTROPHILS 67.7 % (40-80); PLATELET COUNT 249 10x3/uL (130-400); RBC 3.41 10x6/uL (4.00-5.40); RDW 12.7 % (11.5-14.5)
[2017-04-06 06:48] LABS: WBC 6.7 10x3/uL (4.8-10.8)
[2017-04-06 06:56] LABS: ANION GAP 14.6 mmol/L (8-16); CALCIUM 8.3 mg/dL (8.5-10.1); CARBON DIOXIDE 24.4 mmol/L (21.0-32.0); CREATININE - SERUM 4.3 mg/dL (0.6-1.3)
[2017-04-06 08:00] VITALS: BP 184/70
[2017-04-06 14:17] LABS: APPEARANCE CLEAR (CLEAR); BACTERIA MODERATE /hpf (NONE SEEN); BILIRUBIN NEGATIVE (NEGATIVE); COLOR YELLOW (YELLOW); EPITHELIAL CELLS 0-5 /hpf (0-5); GLUCOSE 100 mg/dL (NEGATIVE); HYALINE CAST OCC /lpf (NONE SEEN); KETONE NEGATIVE (NEGATIVE); MUCUS <1+ /lpf (NONE SEEN); NITRITE NEGATIVE (NEGATIVE); PROTEIN 3+ mg/dL (NEGATIVE); RED CELLS - URINE 0-5 /hpf (0-5); SPECIFIC GRAVITY 1.015 (1.005-1.020); UROBILINOGEN NORMAL (NORMAL); WHITE CELLS - URINE 0-5 /hpf (0-5)
[2017-04-06 21:36] VITALS: BP 168/68
[2017-04-07 08:31] VITALS: BP 188/63
[2017-04-07 22:59] VITALS: BP 156/87
[2017-04-08 07:39] LABS: BASOPHILS 0.2 % (0-2); EOSINOPHILS 6.1 % (0-7); HEMOGLOBIN 10.4 g/dL (12-16); IMMATURE GRANULOCYTES 0.3 % (0-5); LYMPHOCYTES 7.6 % (15-50); MCH 29.6 pg (26.0-34.0); MCHC 32.5 g/dL (31.0-37.0); MCV 91.2 fL (80.0-100.0); MEAN PLATELET VOLUME 11.5 fL (7.4-10.4); MONOCYTES 7.9 % (2-11); NEUTROPHILS 77.9 % (40-80); PLATELET COUNT 254 10x3/uL (130-400); RBC 3.51 10x6/uL (4.00-5.40); RDW 12.8 % (11.5-14.5); WBC 9.1 10x3/uL (4.8-10.8)
[2017-04-08 07:40] VITALS: BP 203/74
[2017-04-08 07:48] LABS: ANION GAP 16.9 mmol/L (8-16); CALCIUM 8.4 mg/dL (8.5-10.1); CARBON DIOXIDE 24.3 mmol/L (21.0-32.0); CREATININE - SERUM 4.8 mg/dL (0.6-1.3); POTASSIUM - SERUM 4.2 mmol/L (3.5-5.1)
[2017-04-08 20:48] VITALS: BP 152/56
[2017-04-09 06:43] LABS: BASOPHILS 0.3 % (0-2); EOSINOPHILS 8.1 % (0-7); HEMATOCRIT 30.4 % (36.0-48.0); HEMOGLOBIN 9.8 g/dL (12-16); IMMATURE GRANULOCYTES 0.3 % (0-5); LYMPHOCYTES 20.4 % (15-50); MCH 29.2 pg (26.0-34.0); MCHC 32.2 g/dL (31.0-37.0); MCV 90.5 fL (80.0-100.0); MEAN PLATELET VOLUME 11.7 fL (7.4-10.4); MONOCYTES 8.4 % (2-11); NEUTROPHILS 62.5 % (40-80); PLATELET COUNT 268 10x3/uL (130-400); RBC 3.36 10x6/uL (4.00-5.40); RDW 12.9 % (11.5-14.5); WBC 7.1 10x3/uL (4.8-10.8)
[2017-04-09 06:51] LABS: ALBUMIN 1.9 g/dL (3.4-5.0); ANION GAP 15.2 mmol/L (8-16); BILIRUBIN - DIRECT 0.07 mg/dL (0.00-0.30); BILIRUBIN - INDIRECT 0.23 mg/dL (0.00-1.00); BILIRUBIN - TOTAL 0.3 mg/dL (0.2-1.3); CARBON DIOXIDE 24.3 mmol/L (21.0-32.0); CREATININE - SERUM 4.8 mg/dL (0.6-1.3); POTASSIUM - SERUM 4.5 mmol/L (3.5-5.1); PROTEIN - SERUM 6.1 g/dL (6.4-8.2)
[2017-04-09 08:10] VITALS: BP 149/62
[2017-04-09 14:03] VITALS: BP 154/60
[2017-04-09 20:20] VITALS: BP 156/61
[2017-04-10 07:40] VITALS: BP 176/61
[2017-04-10 14:08] VITALS: BP 180/64
[2017-04-10 20:00] VITALS: BP 164/56
[2017-04-11 08:17] VITALS: BP 177/63
[2017-04-11 22:15] VITALS: BP 171/62
[2017-04-12 07:57] VITALS: BP 141/51
[2017-04-12 19:00] VITALS: BP 170/73
[2017-04-13 08:50] VITALS: BP 170/61
[2017-04-13 15:37] VITALS: BP 164/64
[2017-04-13 20:00] VITALS: BP 142/53
[2017-04-14 08:07] VITALS: BP 159/60
[2017-04-14 19:47] VITALS: BP 163/53
[2017-04-15 06:50] LABS: BASOPHILS 0.9 % (0-2); HEMATOCRIT 29.5 % (36.0-48.0); HEMOGLOBIN 9.5 g/dL (12-16); IMMATURE GRANULOCYTES 0.3 % (0-5); LYMPHOCYTES 21.2 % (15-50); MCH 29.1 pg (26.0-34.0); MCHC 32.2 g/dL (31.0-37.0); MCV 90.5 fL (80.0-100.0); MEAN PLATELET VOLUME 11.4 fL (7.4-10.4); NEUTROPHILS 55.6 % (40-80); PLATELET COUNT 316 10x3/uL (130-400); RBC 3.26 10x6/uL (4.00-5.40); RDW 13.1 % (11.5-14.5); WBC 6.9 10x3/uL (4.8-10.8)
[2017-04-15 06:58] LABS: ANION GAP 20.5 mmol/L (8-16); CALCIUM 8.2 mg/dL (8.5-10.1); CARBON DIOXIDE 20.9 mmol/L (21.0-32.0); CREATININE - SERUM 4.8 mg/dL (0.6-1.3); POTASSIUM - SERUM 5.4 mmol/L (3.5-5.1)
[2017-04-15 07:45] VITALS: BP 158/48
[2017-04-15 21:05] VITALS: BP 160/57
[2017-04-16 06:55] LABS: ANION GAP 18.4 mmol/L (8-16); CARBON DIOXIDE 22.9 mmol/L (21.0-32.0); CREATININE - SERUM 5.2 mg/dL (0.6-1.3); POTASSIUM - SERUM 5.3 mmol/L (3.5-5.1)
[2017-04-16 08:08] VITALS: BP 156/65
[2017-04-16 14:06] VITALS: BP 162/59
[2017-04-16 16:00] VITALS: BP 155/66
[2017-04-16 21:40] VITALS: BP 174/58
[2017-04-17 07:19] LABS: EOSINOPHILS 9.8 % (0-7); HEMATOCRIT 28.1 % (36.0-48.0); IMMATURE GRANULOCYTES 0.3 % (0-5); MCV 90.6 fL (80.0-100.0); MEAN PLATELET VOLUME 11.8 fL (7.4-10.4); MONOCYTES 10.3 % (2-11); NEUTROPHILS 48.6 % (40-80); PLATELET COUNT 296 10x3/uL (130-400); RDW 13.2 % (11.5-14.5); WBC 6.1 10x3/uL (4.8-10.8)
[2017-04-17 07:48] LABS: CALCIUM 7.8 mg/dL (8.5-10.1); CARBON DIOXIDE 23.6 mmol/L (21.0-32.0); CREATININE - SERUM 5.1 mg/dL (0.6-1.3); POTASSIUM - SERUM 4.6 mmol/L (3.5-5.1)
[2017-04-17 09:15] VITALS: BP 159/51
[2017-04-17 21:35] VITALS: BP 176/55
[2017-04-18 07:57] VITALS: BP 107/59
[2017-04-18] MEDS ORDERED: METOPROLOL TART50 MG PO (08:14)
[2017-04-18] MEDS ORDERED: CATAPRES0.1 MG PO (08:15)
[2017-04-18] MEDS ORDERED: HYDRALAZINE HCL50 MG PO (08:15)
== END 2017-04-18 12:52 | disposition home health service (06) | DRG 91 ==
LOC: D.REHAB 17:07
PROVIDERS: Emergency Medicine; Internal Medicine Nephrology
DX: G72.89 Other specified myopathies (principal); J18.9 Pneumonia, unspecified organism; I50.33 Acute on chronic diastolic (congestive) heart failure; I13.0 Hypertensive heart and chronic kidney disease with heart failure and stage 1 through stage 4 chronic kidney disease, or unspecified chronic kidney disease; N17.9 Acute kidney failure, unspecified; J90 Pleural effusion, not elsewhere classified; E11.22 Type 2 diabetes mellitus with diabetic chronic kidney disease; N18.9 Chronic kidney disease, unspecified; E11.21 Type 2 diabetes mellitus with diabetic nephropathy; E78.5 Hyperlipidemia, unspecified; D64.9 Anemia, unspecified; I25.10 Atherosclerotic heart disease of native coronary artery without angina pectoris; E87.6 Hypokalemia; E88.09 Other disorders of plasma-protein metabolism, not elsewhere classified; Y95 Nosocomial condition

== ENCOUNTER 2017-04-18 13:01 | Inpatient (IN) | payer MEDICARE ==
[~2017-04-18] VITALS: Ht 160 cm; Wt 67.6 kg
[~2017-04-18 13:01] MED LIST changes: +HYDRALAZINE HCL50 MG PO; +METOPROLOL TART50 MG PO
[2017-04-18 13:51] VITALS: BMI 26.9
[2017-04-18 15:13] LABS: BASOPHILS 0.7 % (0-2); EOSINOPHILS 6.7 % (0-7); HEMATOCRIT 29.6 % (36.0-48.0); HEMOGLOBIN 9.5 g/dL (12-16); IMMATURE GRANULOCYTES 0.3 % (0-5); LYMPHOCYTES 20.8 % (15-50); MCH 29.1 pg (26.0-34.0); MCHC 32.1 g/dL (31.0-37.0); MCV 90.8 fL (80.0-100.0); MEAN PLATELET VOLUME 11.3 fL (7.4-10.4); MONOCYTES 7.2 % (2-11); NEUTROPHILS 64.3 % (40-80); PLATELET COUNT 308 10x3/uL (130-400); RBC 3.26 10x6/uL (4.00-5.40)
[2017-04-18 15:23] LABS: INR 1.03 (0.85-1.17); PROTIME 13.1 SECONDS (11.6-15.0)
[2017-04-18 15:55] LABS: ANION GAP 21.9 mmol/L (8-16); CALCIUM 7.4 mg/dL (8.5-10.1); CARBON DIOXIDE 22.2 mmol/L (21.0-32.0); CREATININE - SERUM 5.1 mg/dL (0.6-1.3); POTASSIUM - SERUM 5.1 mmol/L (3.5-5.1)
[2017-04-18 21:54] VITALS: BP 158/53
[2017-04-19 01:14] VITALS: BP 171/69
[2017-04-19 06:08] VITALS: BP 174/51
[2017-04-19 09:18] VITALS: BP 186/61
[2017-04-19 11:55] VITALS: BMI 26.9
[2017-04-19 12:00] VITALS: BP 188/68
[2017-04-19 12:07] VITALS: Ht 160 cm; Wt 67.6 kg
[2017-04-19 18:10] VITALS: BP 119/52
[2017-04-19 19:00] VITALS: BP 146/51
[2017-04-20 04:40] VITALS: BP 117/43
[2017-04-20 08:21] VITALS: BP 143/48
[2017-04-20 11:27] LABS: ALBUMIN 2.4 g/dL (3.4-5.0); ANION GAP 17.3 mmol/L (8-16); BILIRUBIN - TOTAL 0.29 mg/dL (0.2-1.3); CALCIUM 7.4 mg/dL (8.5-10.1); CARBON DIOXIDE 23.4 mmol/L (21.0-32.0); CREATININE - SERUM 5.1 mg/dL (0.6-1.3); PHOSPHOROUS 8.5 mg/dL (2.5-4.9); POTASSIUM - SERUM 4.7 mmol/L (3.5-5.1); PROTEIN - SERUM 5.6 g/dL (6.4-8.2)
[2017-04-20 12:25] VITALS: BP 145/48
[2017-04-20 15:45] VITALS: BP 158/41
[2017-04-20 19:00] VITALS: BP 186/68
[2017-04-21] VITALS: BP 154/86
[2017-04-21 04:00] VITALS: BP 169/57
[2017-04-21 09:15] VITALS: BP 165/82
[2017-04-21] MEDS ORDERED: NORVASC5 MG PO (11:30)
[2017-04-21 11:48] VITALS: BP 171/55
[2017-04-21 16:43] VITALS: BP 168/51
== END 2017-04-21 20:12 | disposition home health service (06) | DRG 699 ==
LOC: D.M2 13:01
PROVIDERS: Internal Medicine; Internal Medicine Nephrology
DX: E11.21 Type 2 diabetes mellitus with diabetic nephropathy (principal); I13.0 Hypertensive heart and chronic kidney disease with heart failure and stage 1 through stage 4 chronic kidney disease, or unspecified chronic kidney disease; N17.9 Acute kidney failure, unspecified; E11.22 Type 2 diabetes mellitus with diabetic chronic kidney disease; N18.9 Chronic kidney disease, unspecified; I50.9 Heart failure, unspecified; E78.5 Hyperlipidemia, unspecified; D50.9 Iron deficiency anemia, unspecified; I25.10 Atherosclerotic heart disease of native coronary artery without angina pectoris; I34.0 Nonrheumatic mitral (valve) insufficiency

== ENCOUNTER → 2017-05-03 13:04 | Outpatient (CLI) | payer MEDICARE ==
[2017-04-19 12:07] VITALS: BMI 26.9
[2017-05-03 17:18] LABS: ANION GAP 18.6 mmol/L (8-16); CALCIUM 7.6 mg/dL (8.5-10.1); CARBON DIOXIDE 19.8 mmol/L (21.0-32.0); CREATININE - SERUM 4.5 mg/dL (0.6-1.3); POTASSIUM - SERUM 5.4 mmol/L (3.5-5.1)
[2017-05-03 17:30] LABS: APPEARANCE HAZY (CLEAR); BILIRUBIN NEGATIVE (NEGATIVE); COLOR YELLOW (YELLOW); GLUCOSE 250 mg/dL (NEGATIVE); KETONE NEGATIVE (NEGATIVE); NITRITE NEGATIVE (NEGATIVE); PROTEIN 2+ mg/dL (NEGATIVE); SPECIFIC GRAVITY 1.015 (1.005-1.020); UROBILINOGEN NORMAL (NORMAL)
[2017-05-03 17:33] LABS: BACTERIA FEW /hpf (NONE SEEN); RED CELLS - URINE 0-5 /hpf (0-5)
[2017-05-03 17:53] LABS: CREATININE - URINE 42.6 mg/dL (30-125); PRO/CRE RATIO URINE 10.3 mg/g; PROTEIN - URINE 440.8 mg/dL (0.0-11.9)
== END | disposition home or self-care (01) ==
LOC: D.LABREF 13:04
PROVIDERS: Internal Medicine Nephrology
DX: N17.9 Acute kidney failure, unspecified (principal); D50.9 Iron deficiency anemia, unspecified

== ENCOUNTER 2017-08-02 21:34 | Observation (INO) | payer MEDICARE ==
[~2017-08-02] VITALS: Ht 160 cm; Wt 57.4 kg
[2017-08-02 22:08] LABS: BASOPHILS 0.3 % (0-2); EOSINOPHILS 7.1 % (0-7); HEMATOCRIT 24.6 % (36.0-48.0); HEMOGLOBIN 8.3 g/dL (12-16); IMMATURE GRANULOCYTES 0.1 % (0-5); LYMPHOCYTES 22.1 % (15-50); MCH 30.4 pg (26.0-34.0); MCHC 33.7 g/dL (31.0-37.0); MCV 90.1 fL (80.0-100.0); MEAN PLATELET VOLUME 9.5 fL (7.4-10.4); MONOCYTES 5.2 % (2-11); NEUTROPHILS 65.2 % (40-80); PLATELET COUNT 270 10x3/uL (130-400); RBC 2.73 10x6/uL (4.00-5.40); RDW 12.7 % (11.5-14.5); WBC 7.5 10x3/uL (4.8-10.8)
[2017-08-02 22:26] LABS: ALBUMIN 3.2 g/dL (3.4-5.0); ALKALINE PHOSPHATASE 39 U/L (46-116); ALT (SGPT) 13 U/L (10-68); BILIRUBIN - TOTAL 0.23 mg/dL (0.2-1.3); CALC OSMOLALITY 290 mosm/kg (275-300); CALCIUM 8.2 mg/dL (8.5-10.1); CARBON DIOXIDE 22.2 mmol/L (21.0-32.0); CHLORIDE - SERUM 98 mmol/L (98-107); CREATININE - SERUM 5.2 mg/dL (0.6-1.3); POTASSIUM - SERUM 4.8 mmol/L (3.5-5.1); PROTEIN - SERUM 6.9 g/dL (6.4-8.2); SODIUM 134 mmol/L (136-145); UREA NITROGEN 76 mg/dL (7-18); eGFR NON AFRICAN AMERICAN 9 mL/min (90-120)
[2017-08-02 22:30] LABS: GLUCOSE 100 mg/dL (74-106)
[2017-08-02 22:35] LABS: CHOL - HDL RATIO 7.6 ratio (2.3-4.1); CHOLESTEROL, TOTAL 317 mg/dL (0-200); CKMB 0.8 U/L (0.0-3.6); CREATINE KINASE 34 UL (21-215); HDL CHOLESTEROL 42 mg/dL (32-96); LDL CHOLESTEROL 245 mg/dL (0-100); LDL-HDL RATIO 5.8 ratio (1.5-3.5); TRIGLYCERIDE 150 mg/dL (30-200)
[2017-08-02 22:41] LABS: TROPONIN-I 0.072 ng/mL (0.000-0.060)
[2017-08-03 02:08] LABS: CKMB 4.8 U/L (0.0-3.6); CREATINE KINASE 72 UL (21-215)
[2017-08-03 02:09] LABS: TROPONIN-I 1.049 ng/mL (0.000-0.060)
[2017-08-03 02:56] VITALS: BP 162/56; BMI 21.3
[2017-08-03] MEDS ORDERED: NIFEDIPINE ER60 MG PO (03:07)
[2017-08-03] MEDS ORDERED: CECLOR250 MG PO (03:08)
[2017-08-03 05:37] VITALS: BP 177/58
[2017-08-03 08:53] VITALS: BP 132/75
[2017-08-03 09:00] LABS: CKMB 7.8 U/L (0.0-3.6); CREATINE KINASE 88 UL (21-215)
[2017-08-03 09:01] LABS: TROPONIN-I 3.454 ng/mL (0.000-0.060)
[2017-08-03 09:30] VITALS: Ht 160 cm; Wt 57.4 kg
[2017-08-03 11:43] VITALS: BP 152/52
[2017-08-03 13:36] LABS: CKMB 5.6 U/L (0.0-3.6); CREATINE KINASE 76 UL (21-215)
[2017-08-03 13:37] LABS: TROPONIN-I 2.454 ng/mL (0.000-0.060)
[2017-08-03 15:17] VITALS: BP 154/57
[2017-08-03 20:00] VITALS: BP 189/61
[2017-08-04] VITALS: BP 138/63
[2017-08-04 09:16] VITALS: BP 162/83
[2017-08-04 12:02] VITALS: BP 142/85
[2017-08-04 15:39] VITALS: BP 160/77
[2017-08-04 20:00] VITALS: BP 234/88
[2017-08-05] VITALS: BP 174/67
[2017-08-05 04:00] VITALS: BP 190/73
[2017-08-05 06:19] LABS: BASOPHILS 0.3 % (0-2); EOSINOPHILS 7.5 % (0-7); HEMATOCRIT 25.4 % (36.0-48.0); HEMOGLOBIN 8.4 g/dL (12-16); IMMATURE GRANULOCYTES 0.2 % (0-5); LYMPHOCYTES 33.2 % (15-50); MCH 30.1 pg (26.0-34.0); MCHC 33.1 g/dL (31.0-37.0); MEAN PLATELET VOLUME 10.3 fL (7.4-10.4); MONOCYTES 6.8 % (2-11); PLATELET COUNT 286 10x3/uL (130-400); RBC 2.79 10x6/uL (4.00-5.40); RDW 12.5 % (11.5-14.5)
[2017-08-05 06:46] LABS: ALBUMIN 2.5 g/dL (3.4-5.0); ANION GAP 14.7 mmol/L (8-16); BILIRUBIN - TOTAL 0.3 mg/dL (0.2-1.3); CARBON DIOXIDE 24.6 mmol/L (21.0-32.0); CREATININE - SERUM 5.1 mg/dL (0.6-1.3); POTASSIUM - SERUM 4.3 mmol/L (3.5-5.1)
[2017-08-05 07:57] VITALS: BP 199/66
[2017-08-05 11:28] VITALS: BP 174/63
[2017-08-05 15:17] VITALS: BP 180/61
== END 2017-08-05 18:44 | disposition home health service (06) ==
LOC: D.ER 21:34 → D.EDHOLD 08-03 00:57 → OBSVTIME 08-03 00:57 → D.M2 08-03 01:32
PROVIDERS: Family Medicine; Legal Medicine
DX: I21.4 Non-ST elevation (NSTEMI) myocardial infarction (principal); I25.10 Atherosclerotic heart disease of native coronary artery without angina pectoris; Z95.5 Presence of coronary angioplasty implant and graft; E11.22 Type 2 diabetes mellitus with diabetic chronic kidney disease; I13.2 Hypertensive heart and chronic kidney disease with heart failure and with stage 5 chronic kidney disease, or end stage renal disease; I50.9 Heart failure, unspecified; N18.6 End stage renal disease; N17.9 Acute kidney failure, unspecified; D64.9 Anemia, unspecified; Z86.73 Personal history of transient ischemic attack (TIA), and cerebral infarction without residual deficits

== ENCOUNTER 2018-04-25 06:49 | Inpatient (IN) | payer MEDICARE ==
[2018-04-25] VITALS (12 sets, daily range): BP systolic 130–215; BP diastolic 52–89
[~2018-04-25] VITALS: Ht 160 cm; Wt 54.4 kg
[~2018-04-25 06:49] MED LIST changes: +CECLOR250 MG PO
[2018-04-25 07:31] LABS: BASOPHILS 0.5 % (0-2); LYMPHOCYTES 22.5 % (15-50); MCH 30.4 pg (26.0-34.0); MCHC 32.6 g/dL (31.0-37.0); MCV 93.1 fL (80.0-100.0); MEAN PLATELET VOLUME 10.2 fL (7.4-10.4); MONOCYTES 6.5 % (2-11); NEUTROPHILS 63.5 % (40-80); PLATELET COUNT 274 10x3/uL (130-400); RBC 2.47 10x6/uL (4.00-5.40); RDW 12.9 % (11.5-14.5); WBC 6.2 10x3/uL (4.8-10.8)
[2018-04-25 07:36] LABS: HEMOGLOBIN 7.5 g/dL (12-16)
[2018-04-25 07:40] LABS: ALBUMIN 2.9 g/dL (3.4-5.0); ALKALINE PHOSPHATASE 34 U/L (46-116); ALT (SGPT) 8 U/L (10-68); BILIRUBIN - TOTAL 0.28 mg/dL (0.2-1.3); CALC OSMOLALITY 300 mosm/kg (275-300); CALCIUM 7.9 mg/dL (8.5-10.1); CARBON DIOXIDE 16.1 mmol/L (21.0-32.0); CHLORIDE - SERUM 105 mmol/L (98-107); CREATININE - SERUM 5.9 mg/dL (0.6-1.3); GLUCOSE 98 mg/dL (74-106); POTASSIUM - SERUM 4.8 mmol/L (3.5-5.1); PROTEIN - SERUM 6.4 g/dL (6.4-8.2); SODIUM 137 mmol/L (136-145); UREA NITROGEN 88 mg/dL (7-18); eGFR NON AFRICAN AMERICAN 7 mL/min (90-120)
[2018-04-25 07:43] LABS: APTT 27.3 SECONDS (22.8-39.4); INR 1.03 (0.85-1.17)
[2018-04-25 07:52] LABS: CKMB 0.5 U/L (0.0-3.6); CREATINE KINASE 19 UL (21-215); MAGNESIUM - SERUM 2.3 mg/dL (1.8-2.4)
[2018-04-25] MEDS ORDERED: HYDRALAZINE HCL50 MG PO (07:58)
[2018-04-25] MEDS ORDERED: PROCARDIA10 MG PO (07:59)
[2018-04-25] MEDS ORDERED: FUROSEMIDE20 MG PO (07:59)
[2018-04-25] MEDS ORDERED: ASPIRIN EC81 M1 PO (08:00)
[2018-04-25] MEDS ORDERED: CATAPRES0.1 MG PO (08:00)
[2018-04-25] MEDS ORDERED: TOPROL XL50 MG PO (08:01)
[2018-04-25] MEDS ORDERED: SENNA LAXATIVE8.6 MG PO (08:01)
[2018-04-25] MEDS ORDERED: ZOFRAN4 MG PO (08:02)
--- NOTE | 2018-04-25 09:23 | MORECARE ---
CASE MANAGEMENT DISCHARGE SUMMARY PATIENT: TODD RESENDIZ UNIT: [id number] ADM DATE: 04/25/18 AGE: 77 : 42 SEX: F ROOM/BED: D.E10 AUTHOR: MILLY SKELTON PHYSICIAN: REFERRING PHYSICIAN: SARAHI JACKSON MD DATE OF SERVICE: 04/25/18 Discharge Plan Patient Name: TODD RESENDIZ Facility: [facility]:[place] : 1940 Planned Disposition: Home with Hospice Anticipated Discharge Date: 04/28/18 Discharge Date: Expected LOS: 3 Initial Reviewer: [email or web address] Initial Review Date: 04/25/2018 Generated: 04/25/18 10:23 am DCPIA - Discharge Planning Initial Assessment Updated by [email or web address]: Eufemia Gregg on 04/25/18 9:19 am * Is the patient Alert and Oriented? Yes * How many steps to enter\exit or inside your home? 24 * PCP Dr. Jackson * Pharmacy [facility] [address] * Preadmission Environment Home with Family * ADLs Partial Dependent * Partial ADLs (Assistance needed) Bathing Dressing Medication Management * Equipment Hospital Bed Rolling Walker * List name and contact numbers for known caregivers / representatives who currently or will assist patient after discharge: Joe Resendiz - [facility] - [phone] * Verbal permission to speak to the caregivers and representatives has been obtained from the patient. Yes * Community resources currently utilized Hospice Home * Please name any agencies selected above. [facility] * Additional services required to return to the preadmission environment? No * Can the patient safely return to the preadmission environment? Yes * Has this patient been hospitalized within the prior 30 days at any hospital? No Patient Name: TODD RESENDIZ Page [id number] at 0923 All edits/amendments must be made on the electronic document DICTATION DATE: 04/25/18921 PARTS COUNTERPERSON: OXANA 04/25/18921 RPT#: [id number] DC DATE: STATUS: ADM IN [facility] [address] [place] [address] END OF REPORT
--- NOTE | 2018-04-25 09:30 | MORECARE ---
CASE MANAGEMENT DISCHARGE SUMMARY PATIENT: TODD RESENDIZ UNIT: [id number] ADM DATE: 04/25/18 AGE: 77 : 42 SEX: F ROOM/BED: D.E10 AUTHOR: MILLY SKELTON PHYSICIAN: REFERRING PHYSICIAN: SARAHI JACKSON MD DATE OF SERVICE: 04/25/18 Discharge Plan Patient Name: TODD RESENDIZ Facility: [facility]:[place] : 1940 Planned Disposition: Home with Hospice Anticipated Discharge Date: 04/28/18 Discharge Date: Expected LOS: 3 Initial Reviewer: [email or web address] Initial Review Date: 04/25/2018 Generated: 04/25/18 10:30 am DCP- Discharge Planning Updated by [email or web address]: Eufemia Gregg on 04/25/18 8:[address] Patient Name: TODD RESENDIZ Admission Status: ER Accout number: [id number] Admission Date: 04-25-2018 : 1940 Admission Diagnosis: Attending: SARAHI JACKSON Current LOS: 1 Anticipated DC Date: 04-28-2018 Planned Disposition: Home with Hospice Primary Insurance: MEDICARE A & B Discharge Planning Comments: CM met with patient and her sonJoe to complete initial dc planning assessment. CM educated patient on the CM role and verbal consent given by patient to complete assessment. Patient lives at home with her son in a two story home. She has 24 steps to go up to reach the 2nd floor but once there she does not have to go up or down the stairs. The patient is legally blind and her son assists her with her ADL's and her IADL's. Patient is currently on Hospice with [facility]. The patient has refused hemodialysis and was placed on hospice for renal failure and chf. At discharge patient plans to return home with her son and she stated she wanted to resume hospice with [facility]. She feels this is a safe discharge. Patient denied known discharge needs at this time. Patient's son verified that he will transport her home at time of discharge. Patient denied problems getting in or out of a car prior to admission. CM will continue to follow and will assist as needed with dc plans/needs. Claim Professional: Eufemia Gregg RN, [facility] DCPIA - Discharge Planning Initial Assessment Updated by [email or web address]: Eufemia Gregg on 04/25/18 9:19 am * Is the patient Alert and Oriented? Yes * How many steps to enter\exit or inside your home? 24 * PCP Dr. Jackson * Pharmacy [facility] [address] by [address] * Preadmission Environment Home with Family * ADLs Partial Dependent * Partial ADLs (Assistance needed) Bathing Dressing Medication Management * Equipment Hospital Bed Rolling Walker * List name and contact numbers for known caregivers / representatives who currently or will assist patient after discharge: Joe Resendiz - son - [phone] * Verbal permission to speak to the caregivers and representatives has been obtained from the patient. Yes * Community resources currently utilized Hospice Home * Please name any agencies selected above. [facility] * Additional services required to return to the preadmission environment? No * Can the patient safely return to the preadmission environment? Yes * Has this patient been hospitalized within the prior 30 days at any hospital? No Last DP export: 04/25/18 8:23 am Patient Name: TODD RESENDIZ Page [id number] at 0930 All edits/amendments must be made on the electronic document DICTATION DATE: 04/25/18928 OPERATER: OXANA 04/25/18928 RPT#: [id number] DC DATE: STATUS: ADM IN [facility] [address] [place] [address] END OF REPORT
--- NOTE | 2018-04-25 09:50 | NUR ---
First unit of blood started transfusing. Pt AAO, vitals WNL. RN at beside for the first 15 minutes to monitor for any reactions/complications.
--- NOTE | 2018-04-25 10:05 | NUR ---
First 15 minutes of blood transfusion complete, no complaints of complications reported. infusion rate increased to 200ml/hr.
--- NOTE | 2018-04-25 10:36 | NUR ---
Called to give report to receiving nurse in room 2122. Was advised that she would call me back in 5 minutes.
--- NOTE | 2018-04-25 10:45 | NUR ---
report called to JORDANA Elkins. Answered all questions, advised her patient has consults to be called.
--- NOTE | 2018-04-25 14:00 | NUR ---
PT ARRIVED FROM ER ALERT AND ORIENTED, RESPIRATIONS EVEN AND UNLABORED. BLOOD IS RUNNING AT THIS TIME. CALL LIGHT PLACED IN REACH WITH INSTRUCTIONS GIVEN TO CALL FOR HELP TO GET UP FOR ANYTHING. WILL CONTINUE TO MONITOR AND FOLLOW PLAN OF CARE.
[2018-04-26 03:47] VITALS: BP 216/81
[2018-04-26 06:20] VITALS: BP 198/89; BMI 21.3
[2018-04-26 06:20] LABS: ALBUMIN 2.8 g/dL (3.4-5.0); ANION GAP 19.3 mmol/L (8-16); BILIRUBIN - TOTAL 0.29 mg/dL (0.2-1.3); CALCIUM 8.1 mg/dL (8.5-10.1); CARBON DIOXIDE 18.4 mmol/L (21.0-32.0); CREATININE - SERUM 5.9 mg/dL (0.6-1.3); POTASSIUM - SERUM 4.7 mmol/L (3.5-5.1); PROTEIN - SERUM 6.2 g/dL (6.4-8.2)
[2018-04-26 06:37] LABS: BASOPHILS 0.4 % (0-2); EOSINOPHILS 6.5 % (0-7); HEMATOCRIT 26.6 % (36.0-48.0); HEMOGLOBIN 8.8 g/dL (12-16); IMMATURE GRANULOCYTES 0.2 % (0-5); LYMPHOCYTES 28.4 % (15-50); MCH 29.7 pg (26.0-34.0); MCHC 33.1 g/dL (31.0-37.0); MEAN PLATELET VOLUME 10.5 fL (7.4-10.4); MONOCYTES 5.9 % (2-11); NEUTROPHILS 58.6 % (40-80); PLATELET COUNT 268 10x3/uL (130-400); RBC 2.96 10x6/uL (4.00-5.40); RDW 13.9 % (11.5-14.5); WBC 5.6 10x3/uL (4.8-10.8)
[2018-04-26 06:38] LABS: MCV 89.9 fL (80.0-100.0)
--- NOTE | 2018-04-26 07:00 | NUR ---
RECEIVED REPORT. ASSUMED CARE OF PATIENT. CALL LIGHT WITHIN REACH. DENIES NEEDS AT THIS TIME. PATIENT SITTING TO SIDE OF BED.
--- NOTE | 2018-04-26 08:15 | NUR ---
ASSISTED OOB TO RESTROOM AN BACK TO BED. WARM CLOTH PROVIDED FOR HANDS. ASSISTED WITH MEAL SET UP. CALL LIGHT WITHIN REACH.
[2018-04-26 08:46] VITALS: BP 104/68
--- NOTE | 2018-04-26 10:24 | NUR ---
EPOGEN HAS NOT BEEN BROUGHT TO UNIT VIA PHARMACY FOR ADMINISTRATION AT THIS TIME.
--- NOTE | 2018-04-26 11:18 | NUR ---
FSBS 199. 2 UNITS HUMULIN ADMINISTERED PER SLIDING SCALE.
[2018-04-26 12:37] VITALS: Ht 160 cm; Wt 54.4 kg
[2018-04-26 16:25] VITALS: BP 109/62
--- NOTE | 2018-04-26 16:36 | NUR ---
FSBS 141. NO INSULIN COVERAGE REQUIRED PER SLIDING SCALE.
--- NOTE | 2018-04-26 17:46 | NUR ---
ASSISTED PATIENT OOB, TO RESTROOM AND BACK TO BED. MEAL SET UP PROVIDED. CALL LIGHT WITHIN REACH. NO DISTRESS.
--- NOTE | 2018-04-26 18:17 | NUR ---
PAGED FOR POSSIBLE DISCHARGE ORDERS ON PATIENT. HERE AND STATED THAT PATIENT DOES NOT NEED DIALYSIS AT THIS POINT AND THE PATIENT STATES SHE WANTS TO GO BACK HOME ON HOSPICE SO FROM RENAL STANDPOINT PATIENT CAN DISCHARGE BACK HOME WITH HOME HEALTH OF HOSPICE. CALLED AND SPOKE TO ROCKY IN CASE MANAGEMENT. ONCE DISHCARGE ORDERS ARE RECEIVED FROM , SHE CAN HELP GET PATIENT DISCHARGED BACK HOME ON HOSPICE.
[2018-04-26 19:50] VITALS: BP 223/82
--- NOTE | 2018-04-26 20:00 | NUR ---
INITIAL ROUNDS AND ASSESSMENT COMPLETED. PT BEING ASSISTED UP TO BATHROOM BY RACING MECHANIC. ALERT/ORIENTED. DENIES PAIN OR DISCOMFORT. MONITOR AND CPOC.
--- NOTE | 2018-04-26 21:16 | NUR ---
BEDTIME MEDS GIVEN. PT ALSO GIVEN PRN CLONIDINE FOR BP 225/80. WILL MONITOR.
[2018-04-26 23:35] VITALS: BP 174/67
[2018-04-27 03:55] VITALS: BP 206/69
--- NOTE | 2018-04-27 04:00 | NUR ---
PT REFUSED AM LABS.
--- NOTE | 2018-04-27 07:10 | NUR ---
RECEIVED REPORT. ASSUMED CARE OF PATIENT. CALL LIGHT WITHIN REACH. RESTING IN BED WITH EYES OPEN. NO DISTRESS. SR, 65 ON TELEMETRY
[2018-04-27 08:49] VITALS: BP 110/69
--- NOTE | 2018-04-27 11:17 | NUR ---
FSBS 180. 2 UNITS HUMULIN INSULIN ADMINISTERED PER SLIDING SCALE. NO DISTRESS.
--- NOTE | 2018-04-27 11:22 | NUR ---
SHOWER AND COMPLETE LINEN CHANGE PROVIDED AT THIS TIME. NO DISTRESS.
[2018-04-27] MEDS ORDERED: CEREFOLIN TAB1 TAB PO (11:30)
[2018-04-27] MEDS ORDERED: FERROUS SULFAT325 MG PO (11:30)
[2018-04-27] MEDS ORDERED: SODIUM BICARBO650 MG PO (11:30)
[2018-04-27 11:55] VITALS: BP 104/62
--- NOTE | 2018-04-27 12:38 | MORECARE ---
CASE MANAGEMENT DISCHARGE SUMMARY PATIENT: TODD RESENDIZ UNIT: [id number] ADM DATE: 04/25/18 AGE: 77 : 42 SEX: F ROOM/BED: D.9744 AUTHOR: MILLY SKELTON PHYSICIAN: REFERRING PHYSICIAN: SARAHI JACKSON MD DATE OF SERVICE: 04/27/18 Discharge Plan Patient Name: TODD RESENDIZ Facility: [facility]:[place] : 1940 Planned Disposition: Home with Hospice Anticipated Discharge Date: 04/28/18 Discharge Date: Expected LOS: 3 Initial Reviewer: [email or web address] Initial Review Date: 04/25/2018 Generated: 04/27/18 1:37 pm Comments DCP- Discharge Planning Updated by [email or web address]: Eufemia Gregg on 04/27/18 11:[address] DC PLAN: Return to her sons home with [facility]. DC order received with order to restart [facility]. [facility] called and spoke to Jeimy @ [phone]. Jeimy requested that the dc order be faxed to their office @ [phone]. CM faxed order,hospital records and facesheet per her request. Patient to call [facility] when they get home and the nurse will come re-admit her to home hospice. Met with patient and she signed choice form for [facility] as this is her choice to continue with their services. She denied further discharge needs at this time. Signed choice form left with patient and a signed form was placed on her chart. Patient verbalized understanding that she needs to call [facility] when she gets home and they will come out to re-admit her. IMM was completed on admission and not required again at this time. Patient's son will transport patient home. Eufemia Gregg RN, CCM DCP- Discharge Planning Updated by [id number]: Eufemia Gregg on 04/25/18 8:[address] Patient Name: TODD RESENDIZ Admission Status: ER Accout number: [id number] Admission Date: 04-25-2018 : 1940 Admission Diagnosis: Attending: SARAHI JACKSON Current LOS: 1 Anticipated DC Date: 04-28-2018 Planned Disposition: Home with Hospice Primary Insurance: MEDICARE A & B Discharge Planning Comments: CM met with patient and her sonJoe to complete initial dc planning assessment. CM educated patient on the CM role and verbal consent given by patient to complete assessment. Patient lives at home with her son in a two story home. She has 24 steps to go up to reach the 2nd floor but once there she does not have to go up or down the stairs. The patient is legally blind and her son assists her with her ADL's and her IADL's. Patient is currently on Hospice with [facility]. The patient has refused hemodialysis and was placed on hospice for renal failure and chf. At discharge patient plans to return home with her son and she stated she wanted to resume hospice with [facility]. She feels this is a safe discharge. Patient denied known discharge needs at this time. Patient's son verified that he will transport her home at time of discharge. Patient denied problems getting in or out of a car prior to admission. CM will continue to follow and will assist as needed with dc plans/needs. Customer Advocacy Manager: Eufemia Gregg RN, [facility] DCPIA - Discharge Planning Initial Assessment Updated by [id number]: Eufemia Gregg on 04/25/18 9:19 am * Is the patient Alert and Oriented? Yes * How many steps to enter\exit or inside your home? 24 * PCP Dr. Jackson * Pharmacy [facility] [address] * Preadmission Environment Home with Family * ADLs Partial Dependent * Partial ADLs (Assistance needed) Bathing Dressing Medication Management * Equipment Hospital Bed Rolling Walker * List name and contact numbers for known caregivers / representatives who currently or will assist patient after discharge: Joe Resendiz - son - [phone] * Verbal permission to speak to the caregivers and representatives has been obtained from the patient. Yes * Community resources currently utilized Hospice Home * Please name any agencies selected above. [facility] * Additional services required to return to the preadmission environment? No * Can the patient safely return to the preadmission environment? Yes * Has this patient been hospitalized within the prior 30 days at any hospital? No Last DP export: 04/25/18 8:30 am Patient Name: TODD RESENDIZ Page [id number] at 1238 All edits/amendments must be made on the electronic document DICTATION DATE: 04/27/18 1237 CUT PLUG PACKER: OXANA 04/27/18 1237 RPT#: [id number] DC DATE: STATUS: ADM IN [facility] [address] [place] [address] END OF REPORT
[2018-04-27 13:46] VITALS: BP 104/62
--- NOTE | 2018-04-27 15:00 | NUR ---
20 GAUGE IV REMOVED FROM LEFT AC. NO BLEEDING FROM SITE. CATHETER TIP INTACT. 2X2 GAUZE APPLIED AND SECURED WITH BANDAID. TOLERATED IV REMOVAL WELL. CODING QUALITY ANALYST REMOVED.
--- NOTE | 2018-04-27 15:12 | NUR ---
CALLED PATIENTS SON AND HE WILL BE HERE TO PICK PATIENT UP IN ABOUT 30 MINUTES. PATIENT IN ROOM, RESTING IN NO DISTRESS.
--- NOTE | 2018-04-27 15:15 | MORECARE ---
CASE MANAGEMENT DISCHARGE SUMMARY PATIENT: TODD RESENDIZ UNIT: [id number] ADM DATE: 04/25/18 AGE: 77 : 42 SEX: F ROOM/BED: D.8581 AUTHOR: MILLY SKELTON PHYSICIAN: REFERRING PHYSICIAN: SARAHI JACKSON MD DATE OF SERVICE: 04/27/18 Discharge Plan Patient Name: TODD RESENDIZ Facility: [facility]:[place] : 1940 Planned Disposition: Home with Hospice Anticipated Discharge Date: 04/28/18 Discharge Date: Expected LOS: 3 Initial Reviewer: [email or web address] Initial Review Date: 04/25/2018 Generated: 04/27/18 4:15 pm Comments DCP- Discharge Planning Updated by [email or web address]: Eufemia Gregg on 04/27/18 2:[address] DC PLAN: [facility]. DC order received with order to restart [facility]. LORETTA called and spoke to Jeimy @ [phone]. Jeimy requested that the dc order be faxed to their office @ [phone]. CM faxed order,hospital records and facesheet per her request. Patient to call [facility] when they get home and the nurse will come re-admit her to home hospice. Met with patient and she signed choice form for [facility] as this is her choice to continue with their services. She denied further discharge needs at this time. Signed choice form left with patient and a signed form was placed on her chart. Patient verbalized understanding that she needs to call [facility] when she gets home and they will come out to re-admit her. IMM was completed on admission and not required again at this time. Patient's son will transport patient home. Eufemia Gregg RN, CCM Appended by Eufemia Gregg on 04/27/2018 15:10 REPORT DEVELOPER: Received return call from Mary with [facility] who stated it would be tomorrow before the patient could be seen due to revocation. She stated Dr. Jackson would have to do a face to face. LORETTA told her she appreciated her call but requested that she contact Dr. Jackson and also the patient or her son and explain this information to them. She agreed. Eufemia Gregg RN, CCM. DCP- Discharge Planning Updated by [email or web address]: Eufemia Gregg on 04/25/18 8:[address] Patient Name: TODD RESENDIZ Admission Status: ER Accout number: [id number] Admission Date: 04-25-2018 : 1940 Admission Diagnosis: Attending: SARAHI JACKSON Current LOS: 1 Anticipated DC Date: 04-28-2018 Planned Disposition: Home with Hospice Primary Insurance: MEDICARE A & B Discharge Planning Comments: CM met with patient and her sonJoe to complete initial dc planning assessment. CM educated patient on the CM role and verbal consent given by patient to complete assessment. Patient lives at home with her son in a two story home. She has 24 steps to go up to reach the 2nd floor but once there she does not have to go up or down the stairs. The patient is legally blind and her son assists her with her ADL's and her IADL's. Patient is currently on Hospice with [facility]. The patient has refused hemodialysis and was placed on hospice for renal failure and chf. At discharge patient plans to return home with her son and she stated she wanted to resume hospice with [facility]. She feels this is a safe discharge. Patient denied known discharge needs at this time. Patient's son verified that he will transport her home at time of discharge. Patient denied problems getting in or out of a car prior to admission. CM will continue to follow and will assist as needed with dc plans/needs. New Business Clerk: Eufemia Gregg RN, CCM DCPIA - Discharge Planning Initial Assessment Updated by [email or web address]: Eufemia Gregg on 04/25/18 9:19 am * Is the patient Alert and Oriented? Yes * How many steps to enter\exit or inside your home? 24 * PCP Dr. Jackson * [facility] [address] by [facility] * Preadmission Environment Home with Family * ADLs Partial Dependent * Partial ADLs (Assistance needed) Bathing Dressing Medication Management * Equipment Hospital Bed Rolling Walker * List name and contact numbers for known caregivers / representatives who currently or will assist patient after discharge: Joe Resendiz - son - [phone] * Verbal permission to speak to the caregivers and representatives has been obtained from the patient. Yes * Community resources currently utilized [facility] * Please name any agencies selected above. [facility] * Additional services required to return to the preadmission environment? No * Can the patient safely return to the preadmission environment? Yes * Has this patient been hospitalized within the prior 30 days at any hospital? No Last DP export: 04/27/18 11:38 am Patient Name: TODD RESENDIZ Page 82737 at 1515 All edits/amendments must be made on the electronic document DICTATION DATE: 04/27/181514 SPA ASSISTANT MANAGER: OXANA 04/27/181514 RPT#: [id number] DC DATE: STATUS: ADM IN [facility] [address] [place] [address] END OF REPORT
--- NOTE | 2018-04-27 16:25 | NUR ---
1600 PATIENT TAKEN DOWNSTAIRS TO HER SON. PATIENTS SON PICKED HER UP AT THE FRONT ENTRANCE. DISCHARGE INSTRUCTIONS PROVIDED TO PATIENTS SON. VERBALIZED UNDERSTANDING. NO DISTRESS UPON PATIENT LEAVING HOSPITAL. PATIENT LEFT HOSPITAL WITH ALL PERSONAL BELONGINGS.
--- NOTE | 2018-04-28 11:00 | MORECARE ---
CASE MANAGEMENT DISCHARGE SUMMARY PATIENT: TODD RESENDIZ UNIT: [id number] ADM DATE: 04/25/18 AGE: 77 : 42 SEX: F ROOM/BED: D.4774 AUTHOR: MILLY SKELTON PHYSICIAN: REFERRING PHYSICIAN: SARAHI JACKSON MD DATE OF SERVICE: 04/28/18 Discharge Plan Patient Name: TODD RESENDIZ Facility: [facility]:[place] : 1940 Planned Disposition: Home with Hospice Anticipated Discharge Date: 04/27/18 Discharge Date: 04/27/2018 Expected LOS: 2 Initial Reviewer: [email or web address] Initial Review Date: 04/25/2018 Generated: 04/28/18 11:59 am Comments DCP- Discharge Planning Updated by [email or web address]: Eufemia Gregg on 04/27/18 2:[address] DC PLAN: Return to her [facility] home [facility]. DC order received with order to restart [facility]. LORETTA called and spoke to Jeimy @ [phone]. Jeimy requested that the dc order be faxed to their office @ [phone]. CM faxed order,hospital records and facesheet per her request. Patient to call [facility] when they get home and the nurse will come re-admit her to home hospice. Met with patient and she signed choice form for [facility] as this is her choice to continue with their services. She denied further discharge needs at this time. Signed choice form left with patient and a signed form was placed on her chart. Patient verbalized understanding that she needs to call [facility] when she gets home and they will come out to re-admit her. IMM was completed on admission and not required again at this time. Patient's son will transport patient home. Eufemia Gregg RN, CCM Appended by Eufemia Gregg on 04/27/2018 15:10 BURGLAR ALARM INSPECTOR: Received return call from Mary with [facility] who stated it would be tomorrow before the patient could be seen due to revocation. She stated Dr. Jackson would have to do a face to face. LORETTA told her she appreciated her call but requested that she contact Dr. Jackson and also the patient or her son and explain this information to them. She agreed. Eufemia Gregg RN, CCM. DCP- Discharge Planning Updated by [email or web address]: Eufemia Gregg on 04/25/18 8:[address] Patient Name: TODD RESENDIZ Admission Status: ER Accout number: [id number] Admission Date: 04-25-2018 : 1940 Admission Diagnosis: Attending: SARAHI JACKSON Current LOS: 1 Anticipated DC Date: 04-28-2018 Planned Disposition: Home with Hospice Primary Insurance: MEDICARE A & B Discharge Planning Comments: CM met with patient and her sonJoe to complete initial dc planning assessment. CM educated patient on the CM role and verbal consent given by patient to complete assessment. Patient lives at home with her son in a two story home. She has 24 steps to go up to reach the 2nd floor but once there she does not have to go up or down the stairs. The patient is legally blind and her son assists her with her ADL's and her IADL's. Patient is currently on Hospice with [facility]. The patient has refused hemodialysis and was placed on hospice for renal failure and chf. At discharge patient plans to return home with her son and she stated she wanted to resume hospice with [facility]. She feels this is a safe discharge. Patient denied known discharge needs at this time. Patient's son verified that he will transport her home at time of discharge. Patient denied problems getting in or out of a car prior to admission. CM will continue to follow and will assist as needed with dc plans/needs. Retail Warehouse Associate: Eufemia Gregg RN, CCM DCPIA - Discharge Planning Initial Assessment Updated by [id number]: Eufemia Gregg on 04/25/18 9:19 am * Is the patient Alert and Oriented? Yes * How many steps to enter\exit or inside your home? 24 * PCP Dr. Jackson * Pharmacy [facility] on [address] by [facility] * Preadmission Environment Home with Family * ADLs Partial Dependent * Partial ADLs (Assistance needed) Bathing Dressing Medication Management * Equipment Hospital Bed Rolling Walker * List name and contact numbers for known caregivers / representatives who currently or will assist patient after discharge: Joe Resendiz - son - [phone] * Verbal permission to speak to the caregivers and representatives has been obtained from the patient. Yes * Community resources currently utilized [facility] * Please name any agencies selected above. [facility] * Additional services required to return to the preadmission environment? No * Can the patient safely return to the preadmission environment? Yes * Has this patient been hospitalized within the prior 30 days at any hospital? No Last DP export: 04/27/18 2:15 pm Patient Name: TODD RESENDIZ Page 32083 at 1100 All edits/amendments must be made on the electronic document DICTATION DATE: 04/28/18 1059 MOTORCYCLE POLICE OFFICER: OXANA 04/28/18 1059 RPT#: [id number] DC DATE:04/27/18 STATUS: DIS IN [facility] [address] [place] [address] END OF REPORT
== END 2018-04-27 16:00 | disposition home health service (06) | DRG 683 ==
LOC: D.ER 06:49 → D.EDHOLD 08:47 → D.M2 08:47
PROVIDERS: Family Medicine; ADMIT Legal Medicine
DX: N17.9 Acute kidney failure, unspecified (principal); I13.2 Hypertensive heart and chronic kidney disease with heart failure and with stage 5 chronic kidney disease, or end stage renal disease; N18.6 End stage renal disease; I25.10 Atherosclerotic heart disease of native coronary artery without angina pectoris; J44.9 Chronic obstructive pulmonary disease, unspecified; Z86.73 Personal history of transient ischemic attack (TIA), and cerebral infarction without residual deficits; E11.22 Type 2 diabetes mellitus with diabetic chronic kidney disease; I50.9 Heart failure, unspecified; D63.8 Anemia in other chronic diseases classified elsewhere

== ENCOUNTER 2018-06-08 07:24 | Emergency (ER) | payer MEDICARE ==
[~2018-06-08] VITALS: Ht 160 cm; Wt 52.7 kg
[~2018-06-08 07:24] MED LIST changes: +ASPIRIN EC81 M1 PO; +CEREFOLIN TAB1 TAB PO; +FERROUS SULFAT325 MG PO; +PROCARDIA10 MG PO; +SENNA LAXATIVE8.6 MG PO; +SODIUM BICARBO650 MG PO
[2018-06-08 07:27] VITALS: Ht 160 cm; Wt 52.7 kg
[2018-06-08 08:05] LABS: BASOPHILS 0.5 % (0-2); EOSINOPHILS 8.8 % (0-7); HEMATOCRIT 28.5 % (36.0-48.0); HEMOGLOBIN 9.4 g/dL (12-16); IMMATURE GRANULOCYTES 0.2 % (0-5); LYMPHOCYTES 26.7 % (15-50); MCH 29.6 pg (26.0-34.0); MCV 89.6 fL (80.0-100.0); MEAN PLATELET VOLUME 10.7 fL (7.4-10.4); MONOCYTES 4.6 % (2-11); NEUTROPHILS 59.2 % (40-80); PLATELET COUNT 281 10x3/uL (130-400); RBC 3.18 10x6/uL (4.00-5.40); RDW 13.1 % (11.5-14.5); WBC 6.4 10x3/uL (4.8-10.8)
[2018-06-08 08:24] LABS: ALBUMIN 3.3 g/dL (3.4-5.0); ALKALINE PHOSPHATASE 47 U/L (46-116); ALT (SGPT) 10 U/L (10-68); BILIRUBIN - TOTAL 0.33 mg/dL (0.2-1.3); CALC OSMOLALITY 298 mosm/kg (275-300); CALCIUM 8.1 mg/dL (8.5-10.1); CARBON DIOXIDE 17.9 mmol/L (21.0-32.0); CHLORIDE - SERUM 98 mmol/L (98-107); CREATININE - SERUM 6.8 mg/dL (0.6-1.3); GLUCOSE 106 mg/dL (74-106); PROTEIN - SERUM 7.5 g/dL (6.4-8.2); SODIUM 133 mmol/L (136-145); UREA NITROGEN 105 mg/dL (7-18); eGFR NON AFRICAN AMERICAN 6 mL/min (90-120)
[2018-06-08 08:33] LABS: CKMB 0.7 U/L (0.0-3.6); CREATINE KINASE 30 UL (21-215); TROPONIN-I < 0.017 ng/mL (0.000-0.060)
[2018-06-08] MEDS ORDERED: NITRO-DUR0.2 MG TRANSDERM (09:43)
[2018-06-08 10:39] VITALS: BP 159/70
== END 2018-06-08 10:39 | disposition home or self-care (01) ==
LOC: D.ER 07:24
PROVIDERS: Emergency Medicine
DX: R07.9 Chest pain, unspecified (principal); D64.9 Anemia, unspecified; I12.9 Hypertensive chronic kidney disease with stage 1 through stage 4 chronic kidney disease, or unspecified chronic kidney disease; N18.9 Chronic kidney disease, unspecified; Z86.79 Personal history of other diseases of the circulatory system

== ENCOUNTER 2018-07-04 12:24 | Inpatient (IN) | payer OTHER ==
[2018-07-04 12:00] VITALS: BP 182/80
[~2018-07-04 12:24] MED LIST changes: +NITRO-DUR0.2 MG TRANSDERM
[2018-07-04 12:50] VITALS: BP 182/80
--- NOTE | 2018-07-04 15:07 | MORECARE ---
CASE MANAGEMENT DISCHARGE SUMMARY PATIENT: TODD RESENDIZ UNIT: [id number] ADM DATE: 07/04/18 AGE: 78 : 42 SEX: F ROOM/BED: D.1207 AUTHOR: MILLY SKELTON PHYSICIAN: REFERRING PHYSICIAN: SARAHI JACKSON MD DATE OF SERVICE: 07/04/18 Discharge Plan Patient Name: TODD RESENDIZ [facility] [facility] 1940 Planned Disposition: Hospice Medical Facility Anticipated Discharge Date: Discharge Date: Expected LOS: Initial Reviewer: [email or web address] Initial Review Date: 07/04/2018 Generated: 07/04/18 4:07 pm Patient Name: TODD RESENDIZ Page 16207 at 1507 All edits/amendments must be made on the electronic document DICTATION DATE: 07/04/18 1507 CAMPUS SECURITY DIRECTOR: OXANA 07/04/18 1507 RPT#: [id number] DC DATE: STATUS: ADM IN [facility] [address] [place] [address] END OF REPORT
[2018-07-04 16:00] VITALS: BP 132/57
[2018-07-04 16:21] VITALS: BP 182/80; BMI 22.1
[2018-07-04 21:23] VITALS: BP 137/72
[2018-07-05 00:32] VITALS: BP 130/70
[2018-07-05 05:54] VITALS: BP 153/65
[2018-07-05 08:36] VITALS: BP 148/61
--- NOTE | 2018-07-05 10:16 | MORECARE ---
CASE MANAGEMENT DISCHARGE SUMMARY PATIENT: TODD RESENDIZ UNIT: [id number] ADM DATE: 07/04/18 AGE: 78 : 42 SEX: F ROOM/BED: D.1207 AUTHOR: MILLY SKELTON PHYSICIAN: REFERRING PHYSICIAN: SARAHI JACKSON MD DATE OF SERVICE: 07/05/18 Discharge Plan Patient Name: TODD RESENDIZ [facility] [facility] 1940 Planned Disposition: Hospice Medical Facility Anticipated Discharge Date: 07/05/18 Discharge Date: Expected LOS: 1 Initial Reviewer: [email or web address] Initial Review Date: 07/04/2018 Generated: 07/05/18 11:16 am Last DP export: 07/04/18 2:07 p Patient Name: TODD RESENDIZ Page 91859 at 1016 All edits/amendments must be made on the electronic document DICTATION DATE: 07/05/18 1015 FIELD NATURALIST: OXANA 07/05/18 1015 RPT#: [id number] DC DATE: STATUS: ADM IN [facility] [address] [place] [address] END OF REPORT
--- NOTE | 2018-07-05 10:29 | MORECARE ---
CASE MANAGEMENT DISCHARGE SUMMARY PATIENT: TODD RESENDIZ UNIT: [id number] ADM DATE: 07/04/18 AGE: 78 : 42 SEX: F ROOM/BED: D.1207 AUTHOR: MILLY SKELTON PHYSICIAN: REFERRING PHYSICIAN: SARAHI JACKSON MD DATE OF SERVICE: 07/05/18 Discharge Plan Patient Name: TODD RESENDIZ Facility: [facility]:[place] : 1940 Planned Disposition: Hospice Medical Facility Anticipated Discharge Date: 07/05/18 Discharge Date: Expected LOS: 1 Initial Reviewer: [email or web address] Initial Review Date: 07/04/2018 Generated: 07/05/18 11:29 am Comments DCP- Discharge Planning Updated by [email or web address]: Nevaeh Ambrosio on 07/05/18 9:[address] ORDER RECEIVED TO DISCHARGE PATIENT TO THE [facility] TODAY. SHE IS TO RETURN TO A HOSPICE BED. CM SPOKE Day LEON RN ON MED 3. TC TO THE [facility]. SPOKE WITH ORION. THE PATIENT WAS DISCHARGED THEREFORE HER BED IS NOT AVAILABLE TODAY. CM ASK WHICH HOSPICE IS PROVIDING SERVICE. IT IS [facility]. CM ADVISED DAREK, THE PRIMARY NURSE. TC TO [place]. REC CB FROM ONCALL NURSE, MARCO A. EXPLAINED ISSUE. REC CB FROM PARRIS, CLINICAL INSTRUCTOR HAIRSPRING. SHE SPOKE WITH DR ESTRADA. THE PATIENT HAD BEEN IN PAIN AND VOMITING ALL WEEK. SHE HAS BEEN IN HOUSE LESS THAN 24 HRS. THE PATIENT IS FINALLY MORE COMFORTABLE. HOSPICE WILL RE-EVALUATE OVER THE WEEKEND. IF SHE REMAINS WITHOUT DISCOMFORT AND PAIN, THEY WILL PLAN FOR DISCHARGE ON SATURDAY. Last DP export: 07/05/18 9:16 a Patient Name: TODD RESENDIZ Page 05277 at 1029 All edits/amendments must be made on the electronic document DICTATION DATE: 07/05/18 1028 ACCOUNTS RECEIVABLE ASSOCIATE: OXANA 07/05/18 1028 RPT#: [id number] DC DATE: STATUS: ADM IN [facility] [address] [place] [address] END OF REPORT
[2018-07-05 11:40] VITALS: BP 149/81
[2018-07-05 17:49] VITALS: BP 167/65
[2018-07-05 20:00] VITALS: BP 174/77
[2018-07-06] VITALS: BP 168/72
[2018-07-06 06:53] VITALS: BP 171/74
[2018-07-06 08:09] VITALS: BP 181/79
[2018-07-06 12:17] VITALS: BP 181/71
[2018-07-06 20:08] VITALS: BP 149/68
[2018-07-07 00:30] VITALS: BP 177/81
[2018-07-07 05:45] VITALS: BP 160/70
[2018-07-07 08:00] VITALS: BP 188/74
--- NOTE | 2018-07-07 11:24 | MORECARE ---
CASE MANAGEMENT DISCHARGE SUMMARY PATIENT: TODD RESENDIZ UNIT: [id number] ADM DATE: 07/04/18 AGE: 78 : 42 SEX: F ROOM/BED: D.1207 AUTHOR: COSTA,DOC PHYSICIAN: REFERRING PHYSICIAN: SARAHI JACKSON MD DATE OF SERVICE: 07/07/18 Discharge Plan Patient Name: TODD RESENDIZ Facility: [facility]:[place] : 1940 Planned Disposition: Hospice Medical Facility Anticipated Discharge Date: 07/05/18 Discharge Date: Expected LOS: 1 Initial Reviewer: [email or web address] Initial Review Date: 07/04/2018 Generated: 07/07/18 12:24 pm Comments DCP- Discharge Planning Updated by [email or web address]: Nevaeh Ambrosio on 07/07/18 10:[address] CM SPOKE WITH NURSE REGARDING PATIENT' STATUS. SHE HAS HAD CHEST PAIN, NAUSEA AND VOMITING. O2 VIA NASAL CANNULA 2-3 LITERS REMAINS QUITE NAUSEATED TODAY. CONTINUE ZOFRAN DRIP. SHE HAS ALSO HAD PHENERGAN. RECEIVING SENOKOT TID AND DAILY DULCOLAX SUPP. REMAINS IN HOSPICE. DISCHARGE ON HOLD UNTIL N&V UNDER CONTROL. DCP- Discharge Planning Updated by [email or web address]: Nevaeh Ambrosio on 07/05/18 9:[address] ORDER RECEIVED TO DISCHARGE PATIENT TO THE [facility] TODAY. SHE IS TO RETURN TO A HOSPICE BED. CM SPOKE Augustus/ EDWARD RN ON MED 3. TC TO THE [facility]. SPOKE WITH ORION. THE PATIENT WAS DISCHARGED THEREFORE HER BED IS NOT AVAILABLE TODAY. CM ASK WHICH HOSPICE IS PROVIDING SERVICE. IT IS [facility]. CM ADVISED DAREK, THE PRIMARY NURSE. TC TO [facility]. REC CB FROM ONCALL NURSE, MARCO A. EXPLAINED ISSUE. REC CB FROM PARRIS, CLINICAL PARENT COACH. SHE SPOKE WITH DR ESTRADA. THE PATIENT HAD BEEN IN PAIN AND VOMITING ALL WEEK. SHE HAS BEEN IN HOUSE LESS THAN 24 HRS. THE PATIENT IS FINALLY MORE COMFORTABLE. HOSPICE WILL RE-EVALUATE OVER THE WEEKEND. IF SHE REMAINS WITHOUT DISCOMFORT AND PAIN, THEY WILL PLAN FOR DISCHARGE ON SATURDAY. Last DP export: 07/05/18 9:29 a Patient Name: TODD RESENDIZ Page 00308 at 1124 All edits/amendments must be made on the electronic document DICTATION DATE: 07/07/181123 SLEEP LAB TECHNOLOGIST: OXANA 07/07/181123 RPT#: [id number] DC DATE: STATUS: ADM IN [facility] [address] [place] [address] END OF REPORT
[2018-07-07 12:00] VITALS: BP 181/67
[2018-07-07 16:00] VITALS: BP 149/59
[2018-07-07 21:00] VITALS: BP 160/68
[2018-07-08 00:20] VITALS: BP 168/92
[2018-07-08 04:20] VITALS: BP 172/76
[2018-07-08 08:18] VITALS: BP 168/67
[2018-07-08 09:53] VITALS: BMI 22.1
[2018-07-08 20:00] VITALS: BP 185/79
[2018-07-09] VITALS: BP 185/70
[2018-07-09 04:00] VITALS: BP 155/68; BP 156/69
[2018-07-09 09:21] VITALS: BP 158/85
[2018-07-09 11:35] VITALS: BP 164/83
[2018-07-09 20:58] VITALS: BP 161/79
[2018-07-10 05:14] VITALS: BP 146/91
[2018-07-10 08:11] VITALS: BP 165/78
--- NOTE | 2018-07-10 18:12 | MORECARE ---
CASE MANAGEMENT DISCHARGE SUMMARY PATIENT: TODD RESENDIZ UNIT: [id number] ADM DATE: 07/04/18 AGE: 78 : 42 SEX: F ROOM/BED: D.1207 AUTHOR: COSTA,DOC PHYSICIAN: REFERRING PHYSICIAN: SARAHI JACKSON MD DATE OF SERVICE: 07/10/18 Discharge Plan Patient Name: TODD RESENDIZ Facility: [facility]:[place] : 1940 Planned Disposition: Hospice Medical Facility Anticipated Discharge Date: 07/05/18 Discharge Date: 07/10/2018 Expected LOS: 1 Initial Reviewer: [email or web address] Initial Review Date: 07/04/2018 Generated: 07/10/18 7:12 pm Comments DCP- Discharge Planning Updated by [email or web address]: Nevaeh Ambrosio on 07/07/18 10:[address] CM SPOKE WITH NURSE REGARDING PATIENT' STATUS. SHE HAS HAD CHEST PAIN, NAUSEA AND VOMITING. O2 VIA NASAL CANNULA 2-3 LITERS REMAINS QUITE NAUSEATED TODAY. CONTINUE ZOFRAN DRIP. SHE HAS ALSO HAD PHENERGAN. RECEIVING SENOKOT TID AND DAILY DULCOLAX SUPP. REMAINS IN HOSPICE. DISCHARGE ON HOLD UNTIL N&V UNDER CONTROL. DCP- Discharge Planning Updated by [email or web address]: Nevaeh Ambrosio on 07/05/18 9:[address] ORDER RECEIVED TO DISCHARGE PATIENT TO THE [facility] TODAY. SHE IS TO RETURN TO A HOSPICE BED. CM SPOKE Augustus/ EDWARD RN ON MED 3. TC TO THE [facility]. SPOKE WITH ORION. THE PATIENT WAS DISCHARGED THEREFORE HER BED IS NOT AVAILABLE TODAY. CM ASK WHICH HOSPICE IS PROVIDING SERVICE. IT IS [facility]. CM ADVISED DAREK, THE PRIMARY NURSE. TC TO [facility]. REC CB FROM ONCALL NURSE, MARCO A. EXPLAINED ISSUE. REC CB FROM PARRIS, CLINICAL ENAMEL FINISHER. SHE SPOKE WITH DR ESTRADA. THE PATIENT HAD BEEN IN PAIN AND VOMITING ALL WEEK. SHE HAS BEEN IN HOUSE LESS THAN 24 HRS. THE PATIENT IS FINALLY MORE COMFORTABLE. HOSPICE WILL RE-EVALUATE OVER THE WEEKEND. IF SHE REMAINS WITHOUT DISCOMFORT AND PAIN, THEY WILL PLAN FOR DISCHARGE ON SATURDAY. Last DP export: 07/07/18 10:24 a Patient Name: TODD RESENDIZ Page 95573 at 1812 All edits/amendments must be made on the electronic document DICTATION DATE: 07/10/181811 UNDERWEAR CUTTER: OXANA 07/10/181811 RPT#: [id number] DC DATE:07/10/18 STATUS: DIS IN [facility] [address] [place] [address] END OF REPORT
== END 2018-07-10 15:20 | disposition home health service (06) | DRG 951 ==
LOC: D.M3 12:24
PROVIDERS: ADMIT Legal Medicine
DX: Z51.5 Encounter for palliative care (principal)

== ENCOUNTER 2018-09-08 15:11 | Emergency (ER) | payer MEDICARE ==
[~2018-09-08] VITALS: Ht 160 cm; Wt 52.3 kg
[2018-09-08 15:12] VITALS: Ht 160 cm; Wt 52.3 kg
--- NOTE | 2018-09-08 16:29 | NUR ---
DR. BRIONES NOTIFIED AND REVIEWED PT'S BEHAVIOR AND ASSESSMENT RESULTS. PT IS A LOW RISK PER DR. BRIONES. DR. BRIONES STATED TO GIVE RESOURCES TO PT AT TIME OF DISCHARGE. NO FURTHER ORDERS AT THIS TIME. RESOURCES REVIEWED WITH PT AND SHE VERBALIZED UNDERSTANDING.
[2018-09-08 19:15] VITALS: BP 178/89
== END 2018-09-08 19:37 | disposition home or self-care (01) ==
LOC: D.ER 15:11
DX: M25.551 Pain in right hip (principal)